=== PATIENT | male | born 1955 | race Caucasian/White ===

== ENCOUNTER 2020-03-18 11:33 | Inpatient (IN) | payer OTHER ==
--- NOTE | 2020-03-18 13:00 | R.PREADM ---
PRE-ADMISSION SCREENING FORM SCREENING DATE AND TIME 03/18/2020 11:35 (CDT) ANTICIPATED REHAB ADMISSION DATE 03/20/2020 REFERRING FACILITY [facility] REFERRAL DATE AND TIME 03/19/2020 08:35 (CDT) ACUTE ADMIT DATE 03/12/2020 Previous Rehabilitation(s): No. 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 Adiel Marroquin M.D. MR# [id number] [facility] [id number] NAME TRICE SIM ADDRESS [address] [facility] PH[address] [facility] [id number] DATE OF 1955 AGE 65 SSN# [id number] GENDER male MARITAL STATUS RACE white PREF. LANGUAGE (IF NON-SWEDISH) [place] ADMIT FROM 02 - [facility] PRE-HOSPITAL LIVING SETTING 01 - Home (private home/apt. board/care, assisted living, retirement, transitional living) HOME TYPE AND DETAILS Type of home: Double Wide Mobile Home # of levels in the residence: 1 # of steps to enter the residence: 5 # of steps within the residence: 0 Does yard work on 16 acres PRE-HOSPITAL LIVING WITH Family/Relatives FAMILY SUPPORT Yes PRIMARY FAMILY CONTACT NAME Maggie Sim PRIMARY FAMILY CONTACT PHONE PRIMARY FAMILY CONTACT RELATIONSHIP IS PRIMARY FAMILY CONTACT AUTH. REP.? no 1ST EMERGENCY CONTACT Maggie Sim 1ST CONTACT PHONE 1ST CONTACT RELATIONSHIP IS 1ST CONTACT AUTH. REP.? no PHONE 2ND CONTACT ON ADM.? 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 No ANOTHER LIBERTARIAN RESPONSIBLE? No PRIMARY REHAB/ACUTE DIAGNOSIS: acute left medullary lucunar infarct ONSET DATE 03/12/2020 REHAB IMPAIRMENT CATEGORY ([place]): 01 Stroke (STR) MEETS 60% rule AFFECTED EXTREMITIES: RLE, and RUE PRIMARY DIAGNOSIS-RELATED SURGERIES: No surgeries related to the primary diagnosis were performed recently. RISK FOR COMPLICATIONS: - Hypertension TIA [place] Hypotension CVA Intraductal papillary mucinous tumor Tobacco Addiction - COPD Resp. Arrest Acute Resp failure Pneumonia - Atrial Fibrillation CVA Limb embolus Heart failure Atrial Fibrillation SUMMARY OF ACUTE HOSPITALIZATION: Pt. is a 65 yo Right-handed white male. On 03/12/2020 Pt. presented to [facility] with sudden onset of right-side weakness. On 03/12/2020 he was admitted to [facility] with diagnosis acute left medullary lucunar infarct . His impairment category is Stroke 01 - Right Body (Left Brain) (01.2). Pre-morbidly, Pt. was independent/mod-I in Transfers Control and Locomotion; and he had good Balance, Social Cognition, Communication, and Sphincter Control. Currently, he has deficits of Transfers Control, Balance, Locomotion, Self-Care, Safety Awareness, So cial Cognition, and Communication. Pt. is now referred to [facility] for acute in-patient rehabilitation in order to maximize patient's functional independence in activities of daily living, strength, ROM, and mobi lity. Patient has realistic goal of being discharged at assistance level 6-Narda to reside at Home with Spo use. PAST MEDICAL HISTORY AFIB Hypertension Chronic Smoker Post TPA COPD MEDICATION ALLERGIES: No Known Drug Allergies (NKDA) ENVIRONMENTAL ALLERGIES: None Known - Substance Allergies None Known - Other Allergies None Known CODE STATUS: Full code WEIGHT/HEIGHT/BMI: WEIGHT 103 lbs HEIGHT 6' 0" BMI 14 DIET: - Diet Type Regular - Diet - Solid Texture Regular - Diet - Liquid Texture Regular - Tube Feed N/A REVIEW OF SYSTEMS: - Gen Alert and awake Lying in bed No apparent distress Oriented to: person, time, and place - Vital Signs Vital signs stable, afebrile - CVS RRR VITAL SIGNS Temperature: 97.3 F SBP/DBP: 158/83 Pulse: 59 Resp: 18 Vital signs stable, afebrile MEDICATIONS/TREATMENT: Other- See attached MAR (Medication Administration Record). CURRENT SPHINCTER CONTROL: Pre-hospital bladder status: unspecified # of bladder accidents in the last 7 days prior to screenin Pre-hospital bowel status: unspecified # of bowel accidents in the last 7 days prior to screenin CURRENT LOCOMOTION STATUS: distance walked 4 feet DETAILED CURRENT FUNCTIONAL STATUS: - Walking score based on distance walked: 1(<=50ft) QI SCORES: - Self-Care A. Eating 04-Supervision or touching assistance B. Oral hygiene 04-Supervision or touching assistance C. Toileting hygiene 02-Substantial/maximal assistance E. Shower/bathe self 02-Substantial/maximal assistance F. Upper body dressing 03-Partial/moderate assistance G. Lower body dressing 02-Substantial/maximal assistance H. Putting on/taking off footwear - Mobility A. Roll left and right 04-Supervision or touching assistance B. Sit to lying 04-Supervision or touching assistance C. Lying to sitting on side of bed 04-Supervision or touching assistance D. Sit to stand 03-Partial/moderate assistance E. Chair/ybc-fp-cdpah transfer 04-Supervision or touching assistance F. Toilet transfer 04-Supervision or touching assistance G. Car transfer 88-Not attempted due to medical condition or safety concerns I. Walk 10 feet 88-Not attempted due to medical condition or safety concerns J. Walk 50 feet with two turns 88-Not attempted due to medical condition or safety concerns K. Walk 150 feet 88-Not attempted due to medical condition or safety concerns L. Walking 10 feet on uneven surfaces 88-Not attempted due to medical condition or safety concerns M. 1 step (curb) 88-Not attempted due to medical condition or safety concerns N. 4 steps 88-Not attempted due to medical condition or safety concerns O. 12 steps 88-Not attempted due to medical condition or safety concerns P. Picking up object 88-Not attempted due to medical condition or safety concerns - Bladder and Bowel Bladder continence Bowel continence - Endurance Good - Balance Good - Safety Awareness Good CURRENT FUNC. DEFICITS: Self-Care and Mobility HISTORY OF FALLS. HAS THE PATIENT HAD TWO OR MORE FALLS IN THE PAST YEAR OR ANY FALL WITH INJURY IN T HE PAST YEAR?: No PRIOR SURGERY. DID THE PATIENT HAVE MAJOR SURGERY DURING THE 100 DAYS PRIOR TO ADMISSION?: No THERAPY NOTES FROM ACUTE CARE: Attached. SPECIAL NEEDS: - Safety Concerns Skin breakdown precautions needed due to skin breakdown risk PRECAUTIONS: - Weight Bearing Precaution WBAT right LE PATIENT NEEDS ACTIVE AND ONGOING THERAPEUTIC INTERVENTION OF MULTIPLE THERAPY DISCIPLINES, INCLUDING: - Occupational Therapy Cognitive Retraining. Visual Perceptual Training. - Dietary and Nutrition Adequate Nutrition. Nutritional Education. Nutritional Supplements. - Speech Therapy Cognitive Training. Expressive Language Skills. Memory Strategies. Receptive Language Skills. Speech Intelligibility Training. PATIENT NEEDS CLOSE MEDICAL SUPERVISION BY A REHABILITATION PHYSICIAN FOR: Coordination of Treatment Team PATIENT REQUIRES 24X7 REHAB NURSING FOR MEDICAL AND FUNCTIONAL MGT. OF THE FOLLOWING DEFICITS: Disease Management Medication Management Patient/Family Education Providing Safe Environment PATIENT REQUIRES INTENSIVE, COORDINATED INTERDISCIPLINARY APPROACH TO REHAB: Arranging Home Equipment/Services Discharge Planning Family Intervention/Training Field Contact Person/Case Management PATIENT REHAB POTENTIAL: Alivia SIM is able and expected to receive 3 hours of individualized therapy daily on at least 5 of e very 7 days Alivia SIM's prognosis for significant practical improvement within a reasonable period of time appea rs Good Expected level of measurable improvement will be of a practical value to Alivia SIM's functional [place] city or adaptations to impairments Has a viable Discharge Plan Medically appropriate; condition is sufficiently stable to participate in intensive rehab program DISCHARGE PLAN: - Estimated Length of Stay (days) 17. - Consensus on plan Discharge plan has been discussed with primary caregiver. Patient/Family is in agreement with the wang n. Primary caregiver is in agreement with the plan. - Patient/Family Goals Return home with assistance. - Planned Living Setting Upon Discharge Home, to live with Spouse. RECOMMENDED CARE LEVEL: IRF RECOMMENDATION DETAILS: Recommended Admission to Comprehensive Rehabilitation Program to Increase Functional [place] SCREENER'S COMPLETENESS CONFIRMATION: - Screening Confirmation The patient data collection on this preadmission screening form is finished PHYSICIANS REVIEW AND ADMISSION DETERMINATION Admit - Based on my review of the Pre-Admission Screening results, in my medical judgment and experie nce, I concur with the findings and recommend admission to [facility], as this patient requires an IRF level of care. SIGNATURE PANEL: Training Assistant - [electronically] signed by Yara Green Linoleum Mechanic on 03/18/2020 at 12:36 (CD T) Physician Reviewer - [electronically] signed by Dr. Adiel Marroquin M.D. on 03/18/2020 at 12:59 (CDT )
--- OUTSIDE RECORDS SUMMARY | 2020-03-18 22:06 | XMS REPORT | Continuity of Care Document ---
:1955 Author Organization [facility] t Address [address] [place] [address] Care Team Providers Name Role Phone Unavailable Unavailable Unavailable Payers Payer Name Policy Type Policy Number Effective Date Expiration Date S ource Problems This patient has no known problems. Allergies, Adverse Reactions, Alerts Allergy Allergy Status Severity Reaction(s) Onset Inactive Treating Comm ents Source Name Type Date Date Clinician No Known DA Active U [facility] Allergie 13 Clear s 00:00: Ghosh [address] [facility] Medications This patient has no known medications. Procedures This patient has no known procedures. Results Test Description Test Time Test Comments Results Result Comments Source Novel Coronavirus 20182020-03-16 13:37:00 Test Item Value Reference Range Interpretation Comme nts Novel Coronavirus 2018 Negative Negative Posit glen results are indicative of the Inhouse (test code = presenc e qpLSQH-ZgU-6 RNA, clinical GWVVQ70MG) correlation wit h patient historyand other diagnosti c information is necessary to de terminepatient infection status. Positiv e results do not rule outbacterial in fection or co-infection with other viru ses. Negative results do not preclude SA RS-CoV-2 infection andshould not b e used as the sole basis for patient man agementdecisions. Negative result s must be combined with otherclinical o bservations, patient history, and ep idemiologicalinformation. Detection of SA RS-CoV-2 RNA may be affected bysamp le collection methods, storage conditi ons, and/or stageof infection. Jie l RNA mutations, vaccinations, a ntiviraltherapeutics, antibiotics, ch emotherapeutic orimmunosuppres franko drugs have not been evaluated for e ffectson detection. Results are for the identification of SARS-CoV-2 RNA usingthe [employer] M2000 System under th e FDA Emergency UseAuthorizatio n. The testing is performed by los maorained in the procedures for the [employer] M2000 moleculardiagno stic SARS-CoV-2 assay in vitro. 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 (test code = O2SATV) VENOUS BLOOD GAS Room Air Performed b y DELIVERY (test code = certif ied 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 [facility]) [facility] VENOUS BLOOD GAS TEMP 97.5 F (test code = TEMPV) VENOUS BLOOD GAS SITE Other (test code = SITEV) VENOUS TCO2 (test 25 code = TCO2V) - XR CHEST 1 [id number] 08:24:00 FAX: Nishi Cleveland NP [phone] [place]: St: [facility] FAX: Lenin Rutledge [phone] Name: TRICE SIM [facility] [place] : 1955 Age/S: 65/M [address] [place] [address] Unit #: [id number] Loc: G.648 [place] [address] Phys: Nishi Cleveland NP Acct: [id number] Dis Date: Status: ADM IN PHONE #: [phone] Exam Date: 03/15/2020 0756 FAX #: [phone] Reason: eval for aspiration pna EXAMS: CPT CODE: [id number] XR CHEST 1 V 87060 Study: - XR CHEST 1 V 03/15/2020 2:08 AM Patient Name: TRICE SIM MR: [id number] : 1955; Age: 65 years y/o Male Ordering Physician: Nishi Cleveland NP Clinical Indication: eval for aspiration pna Comparison: March 12, 2020 x-ray FINDINGS LUNGS: The lungs are clear of consolidation, pleural effusion, and pneumothorax. HEART AND MEDIASTINUM: Normal size heart. LINES: None. OSSEOUS STRUCTURES: No fracture, dislocation, or suspicious focal osseous lesion. OTHER: None. IMPRESSION: No acute abnormality as above di scussed. SL: [id number] at 0824 Reported and signed by: Zeke Wise M.D. CC: Nishi Cleveland ATHLETE MARKETING AGENT; Alfred Sharma MD Technologist: OBIE Madison RT(R) Trnscrd Date/Time/By: 03/15/2020 (08) : By: [email or web address] Orig Print D/T:S: 03/15/2020 (2336) PAGE 1 Signed ReportBASIC METABOLIC [id number] 23:32:00 Test Item Value Reference Range Interpretation Comments SODIUM (test code = NA) 135 mEq/L 134-147 N POTASSIUM (test code = 3.5 mEq/L 3.4-5.0 N K) CHLORIDE (test code = 103 mEq/L 100-108 N CL) CARBON DIOXIDE (test 23 mEq/L 21-33 N code = CO2) ANION GAP (test code = 12 0-20 N GAP) GLUCOSE (test code = 93 mg/dL 70-110 N GLU) BLOOD UREA NITROGEN 5 mg/dL 7-18 L (test code = BUN) GLOMERULAR FILTRATION 216.6 80-90 H Units of measure = RATE (test code = GFR) ml/mi n/1.73 m2 CREATININE (test code = 0.4 mg/dL 0.6-1.3 L CREAT) CALCIUM (test code = 7.4 mg/dL 8.0-10.5 L CA) [id number] 23:32:00 Test Item Value Reference Range Interpretation Comments MAGNESIUM (test code = MAG) 1.47 mg/dL 1.8-2.4 L [id number] 23:32:00 Test Item Value Reference Range Interpretation Comments TROPONIN-I 0.012 ng/mL 0.000-0.045 N Negative: <= (test code = 0.045 Positive: TROPI) >= 0.046 Correl ation with serial results, other cardiac markers andclin ical findings is necessary to determine the clinicalsignifi cance of this result. Results using different metho dologies should not be c omparedto one another as tanner titative results may jasmina y by method. CBC W/AUTO [id number] 23:20:00 Test Item Value Reference Range Interpretation Comments WHITE BLOOD CELL (test code = 9.38 x10 3/uL 4.5-11.0 N WBC) RED BLOOD CELL (test code = 4.26 x10 6/uL 4.00-5.60 N RBC) HEMOGLOBIN (test code = HGB) 14.7 g/dL 12.5-16.9 N HEMATOCRIT (test code = HCT) 42.0 % 37.5-50.7 N MEAN CELL VOLUME (test code = 98.6 fL 81.0-99.0 N MCV) MEAN CELL HGB (test code = MCH) 34.5 pg 27.0-33.0 H MEAN CELL HGB CONCETRATION 35.0 g/dL 33.0-37.0 N (test code = MCHC) RED CELL DISTRIBUTION WIDTH CV 13.7 % 11.5-14.5 N (test code = RDW) RED CELL DISTRIBUTION WIDTH SD 49.8 fL 37.0-54.0 N (test code = RDW-SD) PLATELET COUNT (test code = 220 x10 3/uL 150-400 N PLT) MEAN PLATELET VOLUME (test code 8.4 fL 7.0-9.0 N = MPV) NEUTROPHIL % (test code = NT%) 71.8 % 56.0-77.0 N IMMATURE GRANULOCYTE % (test 0.2 % 0.0-2.0 N code = IG%) LYMPHOCYTE % (test code = LY%) 13.5 % 14.0-32.0 L MONOCYTE % (test code = MO%) 13.8 % 4.8-9.0 H EOSINOPHIL % (test code = EO%) 0.3 % 0.3-3.7 N BASOPHIL % (test code = BA%) 0.4 % 0.0-2.0 N NUCLEATED RBC % (test code = 0.0 % 0-0 N NRBC%) NEUTROPHIL # (test code = NT#) 6.73 x10 3/uL 2.0-7.6 N IMMATURE GRANULOCYTE # (test 0.02 x10 3/uL 0.00-0.03 N code = IG#) LYMPHOCYTE # (test code = LY#) 1.27 x10 3/uL 1.0-3.8 N MONOCYTE # (test code = MO#) 1.29 x10 3/uL 0.1-0.8 H EOSINOPHIL # (test code = EO#) 0.03 x10 3/uL 0.0-0.2 N BASOPHIL # (test code = BA#) 0.04 x10 3/uL 0.0-0.2 N NUCLEATED RBC # (test code = 0.00 x10 3/uL 0.0-0.1 N NRBC#) MANUAL DIFF REQUIRED (test code NO = MDIFF) VITAMIN [id number] 09:04:00 Test Item Value Reference Range Interpretation Comments VITAMIN B12 (test code = VITB12) 295 pg/mL 193-986 N - MRI BRAIN W/O [id number] 11:55:00 FAX: Alfred Rutledge I [phone] [place]: St: ADM FAX: Yue Levine [phone] Name: TRICE SIM : 1955 Age/S: 65/M [address] [place] [address] Unit #: [id number] Loc: G.212 [place] [address] Phys: Yue Gao MD Acct: G [id number] Dis Date: Status: ADM IN PHONE #: [phone] Exam Date: 03/13/2020 1007 FAX #: [phone] Reason: cva with right hemiplegia,hemisensory; no aphas EXAMS: CPT CODE: [id number] MRI BRAIN W/O CONT [id number] MRI brain without contrast 03/13/2020 HISTORY: Right hemiplegia Comparison is made to CT performed 03/12/2020. FINDINGS: There is an acute 10 x 3 mm infarct involving the left medulla. No supratentorial or cerebellar infarct is present. There is no area of increased T1 signal to suggest acute hemorrhage. No midline shift, extra-axial fluid collection, or hydrocephalus is present. The visualized mastoid air cells are clear. There is no paranasal sinus air-fluid level. The expected intracranial flow voids are present. The craniocervical junction and corpus callosum are within normal limits. There is no blooming artifact on the heme sequence to suggest remote hemorrhage. There are a few small foci of increased FLAIR signal in the cerebral white matter. IMPRESSION: 1. Acute left medullary lacunar infarct. 2. No acute intracranial hemorrhage. 3. Minimal chronic microvascular ischemic changes. SL: BM-Jeramy at 1156 Reported and signed by: Theron Ospina M.D. CC: Alfred Sharma MD; Yue Gao MD Technologist: Mauricio Mohamud, RT(R)(CT)(MR) Trnscrd Date/Time/By: 03/13 (4989) : By: [email or web address] Orig Print D/T: S: 03/13/2020 (9083) PAGE 1 Signed ReportDRUGS OF ABUSE SCREEN [id number] 09:23:00 Test Item Value Reference Range Interpretation Comments URN COCAINE (test code NEGATIVE NEGATIVE = COCAURN) URN CANNABINOIDS (test POSITIVE NEGATIVE A code = CANNABURN) URN AMPHETAMINE (test NEGATIVE NEGATIVE code = AMPHETURN) URN BARBITURATE (test NEGATIVE NEGATIVE code = BARBITURN) URN BENZODIAZEPINE NEGATIVE NEGATIVE Cut-off v alue:200 (test code = BENZOURN) ng/mL URN OPIATES (test code NEGATIVE NEGATIVE Cut-o ff value:2000 = OPIATURN) ng/mL URN PHENCYCLIDINE (PCP) NEGATIVE NEGATIVE Cuto ffs:Barbiturates (test code = PHENCURN) 200 ng/mLBenzodiaze pines 200 ng/ mLTHC Cannabinoids 50 ng/mLOpiates(Mo rphine) 2000 ng/mLAmphetamin e 1000 ng/mLCocaine 300 ng/ mLPCP phencyclidine 25 ng/mL Unconf irmed screening resul ts shouldnot be us ed for non-medical pur poses. URINALYSIS [id number] 08:45:00 Test Item Value Reference Range Interpretation Comments UA COLOR (test code = COLU) YELLOW YEL/STRAW UA APPEARANCE (test code = APPU) CLEAR CLEAR UA GLUCOSE DIPSTICK (test code = NEGATIVE NEGATIVE DGLUU) UA BILIRUBIN DIPSTICK (test code NEGATIVE NEGATIVE = BILU) UA KETONE DIPSTICK (test code = NEGATIVE NEGATIVE KETU) UA SPECIFIC GRAVITY (test code = 1.020 1.005-1.030 N SGU) UA BLOOD DIPSTICK (test code = NEGATIVE NEGATIVE DIANA) UA PH DIPSTICK (test code = LUIS FELIPE) 6.0 5.0-7.0 N UA PROTEIN DIPSTICK (test code = NEGATIVE NEGATIVE PROU) UA UROBILINIOGEN DIPSTICK (test 0.2 mg/dL 0.2-1.0 code = URO) UA NITRITE DIPSTICK (test code = NEGATIVE NEGATIVE AC) UA LEUKOCYTE ESTERASE DIPSTICK TRACE NEGATIVE A (test code = LEUU) UA RBC (test code = RBCU) 0-3 RBC/HPF 0-3 UA WBC NO REFLEX (test code = 4-9 WBC/HPF 0-3 A WBCUCL) UA BACTERIA (test code = BACU) TRACE /HPF NONE SEEN UA SQUAMOUS CELLS (test code = 0-5 /HPF NONE SEEN SQU) UA MUCUS (test code = MUCU) TRACE /LPF NONE SEEN [id number] 06:16:00 Test Item Value Reference Range Interpretation Comments AMMONIA (test code = AMM) 18 umol/L 11-35 N BASIC METABOLIC [id number] 06:16:00 Test Item Value Reference Range Interpretation Comments SODIUM (test code = NA) 135 mEq/L 134-147 N POTASSIUM (test code = 3.7 mEq/L 3.4-5.0 N K) CHLORIDE (test code = 99 mEq/L 100-108 L CL) CARBON DIOXIDE (test 26 mEq/L 21-33 N code = CO2) ANION GAP (test code = 13 0-20 N GAP) GLUCOSE (test code = 123 mg/dL 70-110 H GLU) BLOOD UREA NITROGEN 8 mg/dL 7-18 N (test code = BUN) GLOMERULAR FILTRATION 167.4 80-90 H Units of measure = RATE (test code = GFR) ml/mi n/1.73 m2 CREATININE (test code = 0.5 mg/dL 0.6-1.3 L CREAT) CALCIUM (test code = 8.4 mg/dL 8.0-10.5 N CA) COMMENTS: Fasting in AMLIPID PROFILE (CORONARY RISK)2020-03-13 06:16:00 Test Item Value Reference Range Interpretation Comments TRIGLYCERIDES (test 76 mg/dL 40-150 N code = TRIG) CHOLESTEROL (test 141 mg/dL <200 code = CHOL) CHOLESTEROL/HDL 2.58 RATIO 3.43-4.97 L RISK ASSOCIA JENIFER WITH RATIO (test code = CHOL/HDL RATIOS: RISK CHOLHDL) MALE FEMALE1/2 AVERA GE 3.43 3.27AVERAGE 4.97 4.4 42X AVERAGE 9.55 7.053X AVER AGE 23.39 1 1.04 NOTE THAT THE R EFERENCE VALUE IS RELATE DTO RISK LEVELS RECOM MENDED BY THE NATL.HEA RT, LUNG, AND BLOOD INST. HDL CHOLESTEROL 54.7 mg/dL 32-72 N (test code = HDL) LIPOPROTEIN LDL 84.8 mg/dL 0-100 N <100 OPT PESB653-355 (test code = LDL) NEAR OPTI MAL/ABOVE [id number] 89 HIGH>TW=184 VE RY HIGH*Guidelines provided by the [facility] terol [facility] SmyrnaProa m Adult Treatment Panel III COMMENTS: Fasting in AMHEPATIC FUNCTION [id number] 06:16:00 Test Item Value Reference Range Interpretation Comments TOTAL PROTEIN (test code = PROT) 6.2 g/dL 6.4-8.2 L ALBUMIN (test code = ALB) 3.40 g/dL 3.4-5.0 N BILIRUBIN TOTAL (test code = BILT) 0.90 mg/dL 0.0-1.0 N BILIRUBIN DIRECT (test code = 0.30 MG/DL 0.0-0.30 N BILD) BILIRUBIN INDIRECT (test code = 0.60 MG/DL BILIND) SGOT/AST (test code = AST) 20 IUnit/L 15-37 N SGPT/ALT (test code = ALT) 13 IUnit/L 30-65 L ALKALINE PHOSPHATASE TOTAL (test 36 IUnit/L 20-125 N code = ALKP) COMMENTS: Fasting in [id number] 06:16:00 Test Item Value Reference Range Interpretation Comments PHOSPHOROUS (test code = PHOS) 2.5 mg/dL 2.5-4.9 N COMMENTS: Fasting in [id number] 06:16:00 Test Item Value Reference Range Interpretation Comments MAGNESIUM (test code = MAG) 1.77 mg/dL 1.8-2.4 L COMMENTS: Fasting in AMCALCIUM [id number] 06:16:00 Test Item Value Reference Range Interpretation Comments CALCIUM IONIZED (test code = SUKHWINDER) 1.12 MMOL/L 1.12-1.32 N COMMENTS: Fasting in [id number] 06:16:00 Test Item Value Reference Range Interpretation Comments PREALBUMIN (test code = PREALB) 17.2 mg/dL 16.0-40.0 N COMMENTS: Fasting in [id number] 06:15:00 Test Item Value Reference Range Interpretation Comments HGBA1C% (test code = HGBA1C%) 4.9 %A1C 4.8-6.0 N BASIC METABOLIC [id number] 06:03:00 Test Item Value Reference Range Interpretation Comments SODIUM (test code = NA) mEq/L 134-147 POTASSIUM (test code = K) mEq/L 3.4-5.0 CHLORIDE (test code = CL) mEq/L 100-108 CARBON DIOXIDE (test code = CO2) mEq/L 21-33 ANION GAP (test code = GAP) 0-20 GLUCOSE (test code = GLU) mg/dL 70-110 BLOOD UREA NITROGEN (test code = BUN) mg/dL 7-18 GLOMERULAR FILTRATION RATE (test code 80-90 = GFR) CREATININE (test code = CREAT) mg/dL 0.6-1.3 CALCIUM (test code = CA) mg/dL 8.0-10.5 COMMENTS: Fasting in AMLIPID PROFILE (CORONARY RISK)2020-03-13 06:03:00 Test Item Value Reference Range Interpretation Comments TRIGLYCERIDES (test code = TRIG) mg/dL 40-150 CHOLESTEROL (test code = CHOL) mg/dL <200 CHOLESTEROL/HDL RATIO (test code = RATIO 3.43-4.97 CHOLHDL) HDL CHOLESTEROL (test code = HDL) mg/dL 32-72 LIPOPROTEIN LDL (test code = LDL) mg/dL 0-100 COMMENTS: Fasting in AMHEPATIC FUNCTION [id number] 06:03:00 Test Item Value Reference Range Interpretation Comments TOTAL PROTEIN (test code = PROT) g/dL 6.4-8.2 ALBUMIN (test code = ALB) g/dL 3.4-5.0 BILIRUBIN TOTAL (test code = BILT) mg/dL 0.0-1.0 BILIRUBIN DIRECT (test code = BILD) MG/DL 0.0-0.30 SGOT/AST (test code = AST) IUnit/L 15-37 SGPT/ALT (test code = ALT) IUnit/L 30-65 ALKALINE PHOSPHATASE TOTAL (test IUnit/L 20-125 code = ALKP) COMMENTS: Fasting in [id number] 06:03:00 Test Item Value Reference Range Interpretation Comments PHOSPHOROUS (test code = PHOS) mg/dL 2.5-4.9 COMMENTS: Fasting in [id number] 06:03:00 Test Item Value Reference Range Interpretation Comments MAGNESIUM (test code = MAG) mg/dL 1.8-2.4 COMMENTS: Fasting in AMCALCIUM [id number] 06:03:00 Test Item Value Reference Range Interpretation Comments CALCIUM IONIZED (test code = SUKHWINDER) 1.12 MMOL/L 1.12-1.32 N COMMENTS: Fasting in [id number] 06:03:00 Test Item Value Reference Range Interpretation Comments PREALBUMIN (test code = PREALB) mg/dL 16.0-40.0 COMMENTS: Fasting in AMCBC W/AUTO [id number] 05:47:00 Test Item Value Reference Range Interpretation Comments WHITE BLOOD CELL (test code = 12.05 x10 3/uL 4.5-11.0 H WBC) RED BLOOD CELL (test code = 4.51 x10 6/uL 4.00-5.60 N RBC) HEMOGLOBIN (test code = HGB) 15.5 g/dL 12.5-16.9 N HEMATOCRIT (test code = HCT) 44.5 % 37.5-50.7 N MEAN CELL VOLUME (test code = 98.7 fL 81.0-99.0 N MCV) MEAN CELL HGB (test code = 34.4 pg 27.0-33.0 H MCH) MEAN CELL HGB CONCETRATION 34.8 g/dL 33.0-37.0 N (test code = MCHC) RED CELL DISTRIBUTION WIDTH CV 14.1 % 11.5-14.5 N (test code = RDW) RED CELL DISTRIBUTION WIDTH SD 51.2 fL 37.0-54.0 N (test code = RDW-SD) PLATELET COUNT (test code = 260 x10 3/uL 150-400 N PLT) MEAN PLATELET VOLUME (test 8.3 fL 7.0-9.0 N code = MPV) NEUTROPHIL % (test code = NT%) 81.0 % 56.0-77.0 H IMMATURE GRANULOCYTE % (test 0.3 % 0.0-2.0 N code = IG%) LYMPHOCYTE % (test code = LY%) 9.2 % 14.0-32.0 L MONOCYTE % (test code = MO%) 9.1 % 4.8-9.0 H EOSINOPHIL % (test code = EO%) 0.2 % 0.3-3.7 L BASOPHIL % (test code = BA%) 0.2 % 0.0-2.0 N NUCLEATED RBC % (test code = 0.0 % 0-0 N NRBC%) NEUTROPHIL # (test code = NT#) 9.76 x10 3/uL 2.0-7.6 H IMMATURE GRANULOCYTE # (test 0.04 x10 3/uL 0.00-0.03 H code = IG#) LYMPHOCYTE # (test code = LY#) 1.11 x10 3/uL 1.0-3.8 N MONOCYTE # (test code = MO#) 1.10 x10 3/uL 0.1-0.8 H EOSINOPHIL # (test code = EO#) 0.02 x10 3/uL 0.0-0.2 N BASOPHIL # (test code = BA#) 0.02 x10 3/uL 0.0-0.2 N NUCLEATED RBC # (test code = 0.00 x10 3/uL 0.0-0.1 N NRBC#) MANUAL DIFF REQUIRED (test NO code = MDIFF) [id number] 00:45:00 Test Item Value Reference Range Interpretation Comments GLUBED (test code = 150 MG/DL 70-110 H Performe d by certified GLUBED) 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 [facility] [id number] 14:45:00 Test Item Value Reference Range Interpretation Comments MAGNESIUM (test code = MAG) 1.50 mg/dL 1.8-2.4 L TSH REFLEX TO [id number] 14:45:00 Test Item Value Reference Range Interpretation Comments TSH REFLEX TO FT4 (test code = 4.58 IU/mL 0.42-5.47 N TSHREFLEX) BASIC METABOLIC [id number] 14:13:00 Test Item Value Reference Range Interpretation Comments SODIUM (test code = NA) 134 mEq/L 134-147 N POTASSIUM (test code = 3.9 mEq/L 3.4-5.0 N K) CHLORIDE (test code = 98 mEq/L 100-108 L CL) CARBON DIOXIDE (test 27 mEq/L 21-33 N code = CO2) ANION GAP (test code = 13 0-20 N GAP) GLUCOSE (test code = 158 mg/dL 70-110 H GLU) BLOOD UREA NITROGEN 7 mg/dL 7-18 N (test code = BUN) GLOMERULAR FILTRATION 135.6 80-90 H Units of measure = RATE (test code = GFR) ml/mi n/1.73 m2 CREATININE (test code = 0.6 mg/dL 0.6-1.3 N CREAT) CALCIUM (test code = 8.1 mg/dL 8.0-10.5 N CA) [id number] 14:13:00 Test Item Value Reference Range Interpretation Comments TROPONIN-I < 0.006 ng/mL 0.000-0.045 N Negative: <= (test code = 0.045 Positive: TROPI) >= 0.046 Correl ation with serial results, other cardiac markers andclinical findings is nec essary to determine the clinicalsignifi cance of this result. Results using different metho dologies should not be c omparedto one another as tanner titative results may jasmina y by method. - CT CEREBRAL PERF [id number] 14:04:00 Name: TRICE SIM [facility] [place] : 1955 Age/S: 65 / M [address] [place] [address] Bl Unit #: [id number] Loc: Vasu [id number] Phys: Christopher Alejandro MD Acct: [id number] Dis Date: Status: PRE ER PHONE #: [phone] Exam Date: 03/12/2020 1351 FAX #: [phone] Reason: better than worsening right sided sympotms EXAMS: CPTCODE: [id number] CT CEREBRAL PERF ANAL 89528 Clinical Indication: ; better than worsening right sided sympotms Comparison: None TECHNIQUE: Sequential trans-axial images are obtained from the skull base to the vertex with a multi-detector helical CT after intravenous contrast administration. Coronal and sagittal MIP reconstructions are obtained. Perfusion parametric maps were also generated. Region of interest were placed for arterial input function at the right ICA communicating segment andvenous input function at the superior sagittal sinus. IV Contrast: 100 mL Isovue-370 DOSE: CT imaging performed at this location utilizes radiation dose optimization technique which includes one or more of the followin) Automated exposure control; 2) Adjustment of the mA and/or kV according to patient's size; 3) Use of iterative reconstruction techniques. DLP (mGy- cm): 4 FINDINGS: CT PERFUSION: Mean transit time: No evidence of elevated mean transit time. Cerebral blood flow: No evidence of decreased relative cerebral blood flow. Cerebral blood volume: No evidence of decreased relative cerebral blood volume. IMPRESSION: Negative CT perfusion study. Please note small basal ganglia lacunar in farct, posterior fossa and brainstem infarcts cannot be excluded from CT perfusion examination. MRI examination with diffusion-weighted imaging provides higher sensitivity. Findings discussed with Dr. Quiros at 2:03 PM 03/12/2020 by telephone. SL: [id number] PAGE 1 Signed Report (CONTINUED)[facility]: [facility] 1955 Age/S: 65 / M [address] [place] [address] Blvd Unit #: [id number] Loc: [place] [address] Phys: Christopher Alejandro MD Acct: [id number] Dis Date: Status: PRE ER PHONE #: [phone] Exam Date: 03/12/2020 1351 FAX #: [phone] Reason: better than worsening right sided sympotms EXAMS: CPT CODE: [id number] CT CEREBRAL PERF ANAL 01009 <Continued> at 1404 Reported and signed by: Zeke Wise M.D. CC: Christopher Alejandro MD Technologist:Libby Sen, RT(R)(CT) CTDI: DLP: Trnscb Date/Time: 03/12/2020 (7324) [email or web address] Orig Print D/T: S: 03/12/2020 (3489) PAGE 2 Signed ReportPROTHROMBIN [id number] 13:58:00 Test Item Value Reference Range Interpretation Comments PROTHROMBIN TIME 12.8 SECONDS 9.3-12.9 N PATIENT (test code = PTP) INTERNATIONAL NORMAL 1.2 0.8-1.2 N TARGET RATIO (test code = INR BY IN DICATION INR) Indication INR1. Prophyl axis of venous thrombos is 2.0 - 3. 0 (orthopedic evelio sammi), Prophylaxis of venous thrombos is (other than hig h-risk surgery), Gladys tment of Deep Vein Thrombosis/Pulm onary Embolism, Preve ntion of systemic emb olism - Tissue heart va lves, Acute Myocardia l Infarction (to prevent systemic embo lism), Valvular heart disease, Atri al Fibrillation, Bileaflet mecha nical valve in aortic position.2. Mec hanical prosthetic valv es (high risk), 2.5 - 3.5 Presence of Lupus Anticoagu lant or Antiphospholi pid Antibodies, Pre vention of systemic e mbolism - Acute Myocard ial Infarction (t o prevent recurre nt infarct). THROMBOPLASTIN TIME [id number] 13:58:00 Test Item Value Reference Range Interpretation Comments THROMBOPLASTIN TIME 33.5 Seconds 25.0-39.5 N Ther apeutic PARTIAL (test code = Range: 50.4 - 88.3 PTT) Seconds Effective 11/13/2018 CBC W/O [id number] 13:52:00 Test Item Value Reference Range Interpretation Comments WHITE BLOOD CELL (test code = 7.30 x10 3/uL 4.5-11.0 N WBC) RED BLOOD CELL (test code = 4.24 x10 6/uL 4.00-5.60 N RBC) HEMOGLOBIN (test code = HGB) 14.7 g/dL 12.5-16.9 N HEMATOCRIT (test code = HCT) 42.4 % 37.5-50.7 N MEAN CELL VOLUME (test code = 100.0 fL 81.0-99.0 H MCV) MEAN CELL HGB (test code = MCH) 34.7 pg 27.0-33.0 H MEAN CELL HGB CONCETRATION 34.7 g/dL 33.0-37.0 N (test code = MCHC) RED CELL DISTRIBUTION WIDTH CV 14.0 % 11.5-14.5 N (test code = RDW) RED CELL DISTRIBUTION WIDTH SD 51.1 fL 37.0-54.0 N (test code = RDW-SD) PLATELET COUNT (test code = 241 x10 3/uL 150-400 N PLT) MEAN PLATELET VOLUME (test code 8.3 fL 7.0-9.0 N = MPV) UA RFLX MICR CULT IF [id number] 11:31:00 Test Item Value Reference Range Interpretation Comments UA COLOR (test code = COLU) YELLOW discript YEL/STRAW UA APPEARANCE (test code = CLEAR discript CLEAR APPU) UA GLUCOSE DIPSTICK (test NEGATIVE mg/dL NEG code = DGLUU) UA BILIRUBIN DIPSTICK (test NEGATIVE mg/dL NEG code = BILU) UA KETONE DIPSTICK (test NEGATIVE mg/dL NEG code = KETU) UA SPECIFIC GRAVITY (test 1.015 SG 1.005-1.030 code = SGU) UA BLOOD DIPSTICK (test NEGATIVE mg/DL NEG code = DIANA) UA PH DIPSTICK (test code = 7.5 pH UNITS 5.0-7.0 A LUIS FELIPE) UA PROTEIN DIPSTICK (test NEGATIVE mg/dL NEG code = PROU) UA UROBILINIOGEN DIPSTICK 0.2 mg/dL <2.0 (test code = URO) UA NITRITE DIPSTICK (test NEGATIVE SCREEN NEG code = AC) UA LEUKOCYTE ESTERASE NEGATIVE Leuk/mcL NEGATIVE DIPSTICK (test code = LEUU) UA CULTURE NEEDED? (test Criteria Culture CHK code = UACULT) SOURCE OF URINE: CLEAN CATCHIndication for culture: Dysuria/FrequencyUA RFLX MICR CULT IF [id number] 11:31:00 Test Item Value Reference Range Interpretation Comments UA COLOR (test code = YELLOW discript YEL/STRAW COLU) UA APPEARANCE (test code CLEAR discript CLEAR = APPU) UA GLUCOSE DIPSTICK (test NEGATIVE mg/dL NEG code = DGLUU) UA BILIRUBIN DIPSTICK NEGATIVE mg/dL NEG (test code = BILU) UA KETONE DIPSTICK (test NEGATIVE mg/dL NEG code = KETU) UA SPECIFIC GRAVITY (test 1.015 SG 1.005-1.030 code = SGU) UA BLOOD DIPSTICK (test NEGATIVE mg/DL NEG code = DIANA) UA PH DIPSTICK (test code 7.5 pH UNITS 5.0-7.0 A = LUIS FELIPE) UA PROTEIN DIPSTICK (test NEGATIVE mg/dL NEG code = PROU) UA UROBILINIOGEN DIPSTICK 0.2 mg/dL <2.0 (test code = URO) UA NITRITE DIPSTICK (test NEGATIVE SCREEN NEG code = AC) UA LEUKOCYTE ESTERASE NEGATIVE Leuk/mcL NEGATIVE DIPSTICK (test code = LEUU) UA CULTURE NEEDED? (test NO, WBC<10 Criteria Culture CHK code = UACULT) SOURCE OF URINE: CLEAN CATCHIndication for culture: Dysuria/FrequencyLACTIC [id number] 11:16:00 Test Item Value Reference Range Interpretation Comments LACTIC ACID (test code = LACT) 2.3 mmol/L 0.4-2.0 H Coronavirus 2019 nCoV [id number] 11:08:00 Test Item Value Reference Range Interpretation Comments Coronavirus 2019 nCoV Negative Negative Per ma nufacturer, Bedside (test code = negativ e results should [id number]) be treated aspresumptive a nd, if inconsistent wi th clinical signs andsymptoms or necessary for p atient management, isis uld betested with a n alternative mol ecular assay. Negative resultsdo not p reclude SARS-CoV-2 infe ction and should not be usedas the sole basis for patient man agement decisions. Neg ative results should be considered in t he context of apat ient's recent exposure s, history, prese nce of clinicalsigns a nd symptoms consis tent with COVID-19. Emergent procedure? NO- XR CHEST 1 [id number] 10:35:00 Name: TRICE SIM [place] : 1955 Age/S: 65 / M [address] [address] [place] Unit #: [id number] Loc: [place] [address] Phys: Monroe Villar MD Acct: [id number] Dis Date: Status: REG ER PHONE #: [phone] Exam Date: 03/12/2020 1030 FAX #: Reason: Code Stroke EXAMS: CPT: [id number] XR CHEST 1 V 13772 Fluoro Time: DAP (Gy m2): Air Kerma (mGy): EXAM: - XR CHEST 1 V INDICATION: Code Stroke Location: T 18. COMPARISON: None TECHNIQUE: Frontal view of the chest. FINDINGS: Lungs appear clear. Cardiomediastinal silhouette and osseous structures appear unremarkable. No pleural effusion appreciated. IMPRESSION: No acute cardiopulmonary process seen. at 1035 Reported and signed by: Miguel A Tinsley M.D. CC: Monroe Villar MD PAGE 1 Signed Report Name: TRICE SIM [place] : 1955 Age/S: 65 / M [address] [address] [place] Unit #: [id number] Loc: [place] [address] Phys: Monroe Villar MD Acct: [id number] Dis Date: Status: REG ER PHONE #: [phone] Exam Date: 03/12/2020 1030 FAX #: Reason: Code Stroke EXAMS: CPT: [id number] XR CHEST 1 V 68355 Fluoro Time: DAP (Gy m2): Air Kerma (mGy): <Continued> Technologist: Anette Lamb, RT(R)(CT) Trnscb Date/Time:03/12/2020 (1035) [email or web address] Orig Print D/T: S: 03/12/2020 (3923) PAGE 2 Signed ReportBASIC METABOLIC [id number] 10:21:00 Test Item Value Reference Range Interpretation Comments SODIUM (test code = NA) 134 mmol/L 134-147 N POTASSIUM (test code = 3.6 mmol/L 3.4-5.0 N K) CHLORIDE (test code = 103 mmol/L 100-108 N CL) CARBON DIOXIDE (test 24 mmol/L 21-32 N code = CO2) ANION GAP (test code = 7.0 GAP calc 4.0-15.0 N GAP) GLUCOSE (test code = 166 MG/DL 70-110 H GLU) BLOOD UREA NITROGEN 8 MG/DL 7-18 N (test code = BUN) GLOMERULAR FILTRATION >=60 max estimate >60 RATE (test code = GFR) estGFR CREATININE (test code = 0.7 MG/DL 0.8-1.3 L CREAT) CALCIUM (test code = CA) 7.8 MG/DL 8.5-10.1 L Completed by Nursing: [id number] 10:21:00 Test Item Value Reference Range Interpretation Comments TROPONIN-I (test < 0.015 NG/ML 0.000-0.045 N Negative: </= 0.045 code = TROPI) Positive: >/= 0.046 Correlation wit h serial results, other cardiac markers, and cl inical findings is nec essary to determine the c linical significance of this result. Quantit ative results using d ifferent methodologies s hould not be compared to one another as nume rical results may jasmina yby method. Completed by Nursing: NO- CT ANGIO [id number] 10:14:00 Name: TRICE SIM : 1955 Age/S: 65 / M [address] [address] [place] Unit #: [id number] Loc: [place] [address] Phys: Monroe Villar MD Acct: [id number] Dis Date: Status: REG ER PHONE #: [phone] Exam Date: 03/12/2020951 FAX #: Reason: RUE, RLE WEAKNESS EXAMS: CPT: [id number] CT ANGIO NECK 37620 R16 - CT ANGIO HEAD, - CT ANGIO NECK HISTORY: RUE, RLE WEAKNESS TECHNIQUE: Axial CT images were obtained from the aortic arch to the skull vertex after intravenous contrast utilizing CTA protocol. Maximum intensity projection images were created from the data set. One or more of the following dose reduction techniques were used: Automated exposure control, adjustment of the mA and/or kV according to patient size, and/or iterative reconstruction. COMPARISON: None FINDINGS: CTA NECK: The imaged aortic arch is normal. The origins of the brachiocephalic, bilateral common carotid, bilateral subclavian, and bilateral vertebral arteries demonstrate no significant stenosis. Noncalcified plaque result in mild stenosis of the proximal left subclavian artery distal to the origin and proximal to the left vertebral origin. The bilateral internal andexternal carotid arteries are patent. Mild calcification in bilateral carotid bulbs. There is no significant internal carotid artery stenosis by NASCET-like criteria. The cervical vertebral arteries are patent and right dominant. There is no evidence of arterial dissection, significant stenosis, occlusion, extravasation of contrast material, arteriovenous fistula or pseudoaneurysm. Severe centrilobular and paraseptal emphysema throughout both lungs. Maximum intensity projection images confirm these findings. CTA HEAD: The petrous, cavernous, and supraclinoid segments of the bilateral internal carotid arteries are normal. The ophthalmic artery origins are visualized and normal. The posterior communicating arteries are patent. PAGE 1 Signed Repo rt (CONTINUED) Name: TRICE SIM : 1955 Age/S: 65 / M [address] [address] [place] Unit #: [id number] Loc: [place] [address] Phys: Monroe Villar MD Acct: [id number] Dis Date: Status: REG ER PHONE #: [phone] Exam Date: 03/12/2020 0952 FAX #: Reason: RUE, RLE WEAKNESS EXAMS: CPT: [id number] CT ANGIO NECK [address]69[address] <Continued> Anterior and middle cerebral arteries are normal bilaterally. The anterior communicating artery is patent. Both posterior cerebral arteries are normal. The vertebral arteries are patent and right dominant. The left vertebral artery terminates as PICA. The basilar artery and origins of the bilateral posterior inferior cerebellar arteries, anterior inferior cerebellar arteries, and superior cerebellar arteries are normal. No saccular aneurysm, proximal arterial cut off, intra-arterial clot, or hemodynamically significant intracranial arterial stenosis is present. Maximum intensity projection images confirm these findings. IMPRESSION: Emphysematous changes in the visualized lung apices. Mild atherosclerosis in bilateral carotid bulbs without significant stenosis. Mild stenosis in the proximal left subclavian artery. No large vessel occlusion. at 1014 Reported and signed by: Donell Haddad M.D. CC: Monroe Villar MD Technologist:RT Tyron(R)(CT) CTDI: DLP: Trnscb Date/Time: 03/12/2020 (1014) [email or web address] Orig Print D/T: S: 03/12/2020 (1017) PAGE 2 Signed Report- CT ANGIO [id number] 10:14:00 Name: TRICE SIM [place] : 1955 Age/S: 65 / M [address] [address] [place] Unit #: [id number] Loc: [place] [address] Phys: Monroe Villar MD Acct: [id number] Dis Date: Status: REG ER PHONE #: [phone] Exam Date: 03/12/2020 0948 FAX #: Reason: RUE, RLE WEAKNESS EXAMS: CPT: [id number] CT ANGIO HEAD 67630 R16 - CT ANGIO HEAD, - CT ANGIO NECK HISTORY: RUE, RLE WEAKNESS TECHNIQUE: Axial CT images were obtained from the aortic arch to the skull vertex after intravenous contrast utilizing CTA protocol. Maximum intensity projection images were created from the data set. One or more of the following dose reduction techniques were used: Automated exposure control, adjustment of the mA and/or kV according to patient size, and/or iterativereconstruction. COMPARISON: None FINDINGS: CTA NECK: The imaged aortic arch is normal. The origins of the brachiocephalic, bilateral common carotid, bilateral subclavian, and bilateral vertebral arteries demonstrate no significant stenosis. Noncalcified plaque result in mild stenosis of the proximal left subclavian artery distal to the origin and proximal to the left vertebral origin. The bilateral internal and external carotid arteries are patent. Mild calcification in bilateral carotid bulbs. There is no significant internal carotid artery stenosis by NASCET-like criteria. The cervical vertebral arteries are patent and right dominant. There is no evidence of arterial dissection, significant stenosis, occlusion, extravasation of contrast material, arteriovenous fistula or pseudoaneurysm. Severe centrilobular and paraseptal emphysema throughout both lungs. Maximum intensity projection images confirm these findings. CTA HEAD: The petrous, cavernous, and supraclinoid segments of the bilateral internal carotid arteries are normal. The ophthalmic artery origins are visualized and normal. The posterior communicating arteries are patent. PAGE 1 Signed Report (CONTINUED) Name: TRICE SIM [facility] : 1955 Age/S: 65 / M [address] [facility] [place] Unit #: [id number] Loc: [place] [address] Phys: Monroe Villar MD Acct: [id number] Dis Date: Status: REG ER PHONE #: [phone] Exam Date: 03/12/2020 0902 FAX #: Reason: RUE, RLE WEAKNESS EXAMS: CPT: [id number] CT ANGIO HEAD [address] <Continued> Anterior and middle cerebral arteries are normal bilaterally. The anterior communicating artery is patent. Both posterior cerebral arteries are normal. The vertebral arteries are patent and right dominant. The left vertebral artery terminates as PICA. The basilar artery and origins of the bilateral posterior inferior cerebellar arteries, anterior inferior cerebellar arteries, and superior cerebellar arteries are normal. No saccular aneurysm, proximal arterial cut off, intra-arterial clot, or hemodynamically significant intracranial arterial stenosis is present. Maximum intensity projection images confirm these findings. IMPRESSION: Emphysematous changes in the visualized lung apices. Mild atherosclerosis in bilateral carotid bulbs without significant stenosis. Mild stenosis in the proximal left subclavian artery. No large vessel occlusion. at 1014 Reported and signed by: Donell Haddad M.D. CC: Monroe Villar MD Technologist:Usha Hobson RT(R)(CT) CTDI: DLP: Trnscb Date/Time: 03/12/2020 (1014) [email or web address] Orig Print D/T: S: 03/12/2020 (1017) PAGE 2 Signed Report PROTHROMBIN [id number] 10:07:00 Test Item Value Reference Range Interpretation Comments PT PATIENT (test code = PTP) 13.4 SECONDS 9.3-12.9 H INTERNATIONAL NORMAL RATIO 1.18 INR Unit 0.8-1.2 N (test code = INR) THROMBOPLASTIN TIME [id number] 10:07:00 Test Item Value Reference Range Interpretation Comments THROMBOPLASTIN TIME PARTIAL 29.3 SECONDS 26-35 N (test code = PTT) CBC W/O [id number] 09:59:00 Test Item Value Reference Range Interpretation Comments WHITE BLOOD CELL (test code = WBC) 8.8 K/mm3 3.5-11.0 N RED BLOOD CELL (test code = RBC) 4.13 M/mm3 4.70-6.10 L HEMOGLOBIN (test code = HGB) 14.4 G/DL 12.3-15.9 N HEMATOCRIT (test code = HCT) 40.7 % 35.8-46.7 N MEAN CELL VOLUME (test code = MCV) 98.5 Fl 86.3-98.9 N MEAN CELL HGB (test code = MCH) 34.9 pg 28.9-34.4 H MEAN CELL HGB CONCETRATION (test 35.4 G/DL 32.1-34.5 H code = MCHC) RED CELL DISTRIBUTION WIDTH (test 14.0 SD 11.5-14.5 N code = RDW) PLATELET COUNT (test code = PLT) 249 K/mm3 150-450 N MEAN PLATELET VOLUME (test code = 8.40 fL 7.0-9.6 N MPV) - CT HEAD/BRAIN W/O [id number] 09:57:00 Name: TRICE SIM [facility] : 1955 Age/S: 65 / M [address] [address] [place] Unit #: [id number] Loc: [place] [address] Phys: Monroe Villar MD Acct: [id number] Dis Date: Status: DEP ER PHONE #: [phone] Exam Date: 03/12/2020 0945 FAX #: Reason: Code Str solange EXAMS: CPT: [id number] CT HEAD/BRAIN W/O CONT 77711 EXAM: - CTHEAD/BRAIN W/O CONT LOCATION: C3 HISTORY: 65 years-year old Male with Code Stroke TECHNIQUE: Computerized tomography images from the skull base to the vertex were obtained. Coronal and sagittal reformatted images are provided. This exam was performed according to our departmental dose-optimization program, which includes automated exposure control, adjustment of the mA and/or kV according to patient size and/or use of iterative reconstruction technique COMPARISON: None FINDINGS: Brain: The brain parenchymal architecture is unremarkable. The brain parenchyma is age appropriate. There is no evidence of an acute territorial infarct. Hemorrhage: There is no CT evidence of acute intracranial hemorrhage. Mass/edema: There is no CT evidence of mass effect, midline shift, or parenchymal edema. Ventricles: There is no evidence of hydrocephalus. Bones: There is no evidence of acute displaced calvarial fracture. Sinuses: The visualized portions of the paranasal sinuses and mastoid air cells are free of significant opacification. Other/Soft Tissues: Unremarkable. Findings were communicated to Chrissy Phelps by telephone on 03/12/2020 9:56 AM. IMPRESSION: 1. No CT evidence of acute intracranial abnormality. FOR INTERNAL CODING PURPOSES ONLY PAGE 1 Signed Report (CONTINUED) Name: TRICE SIM [place] : 1955 Age/S: 65 / M [address] [address] [place] Unit #: [id number] Loc: [place] [address] Phys: Monroe Villar MD Acct: [id number] Dis Date: Status: [facility] ER PHONE #: [phone] Exam Date: 03/12/2020 0945 FAX #: Reason: Code Stroke E XAMS: CPT: [id number] CT HEAD/BRAIN W/O CONT 95442 <Continued> RESULT CODE: CVR at 0957 Reported and signed by: SAMRA WHITE M.D. CC: Monroe Villar MD Technologist:Usha Hobson, RT(R)(CT) CTDI: DLP: Trnscb Date/Time: 03/12/2020 (7828) [email or web address] Orig Print D/T: S: 03/12/2020 (3139) PAGE 2 Signed Report
[2020-03-18] MEDS ORDERED: TRAZODONE 50 MG TABLET PO PRN (22:29)
[2020-03-18] MEDS ORDERED: LACTULOSE 20 GM/30 ML UCUP PO PRN (22:30)
[2020-03-18 23:52] LABS: Urine Appearance CLEAR; Urine Bilirubin NEGATIVE (NEG); Urine Blood NEGATIVE (NEG); Urine Color YELLOW; Urine Glucose NEGATIVE (NEG); Urine Protein NEGATIVE (NEG); Urine pH 7.5 (5.0-7.0)
[2020-03-19] MEDS: TRAZODONE 50 MG TABLET PO PRN (00:07)
[2020-03-19] MEDS: HYDROCODONE/APAP 5/325 MG TAB PO PRN ×3 (00:07→19:14)
[2020-03-19 00:33] LABS: Urine Bacteria <20 /HPF (NONE SEEN); Urine Culture Reflex Order NOT NEEDED; Urine RBC NONE SEEN /HPF (NONE SEEN)
[2020-03-19] MEDS ORDERED: GUAIFENESIN 600 MG SA TAB PO SCH (08:00)
[2020-03-19] MEDS: ARFORMOTEROL TARTRATE 15 MCG/2 ML VIAL.NEB IH SCH ×2 (08:20→20:20)
[2020-03-19] MEDS: METOPROLOL TAR 50 MG TAB PO SCH ×2 (08:46→19:36)
[2020-03-19] MEDS: NICOTINE 21 MG/PAT TD SCH (08:51)
[2020-03-19] MEDS ORDERED: IPRATROPIUM 200 PUFF/12.9 GM INH IH SCH ×2 (09:00→17:00)
[2020-03-19] MEDS ORDERED: GUAIFENESIN 600 MG SA TAB PO PRN (15:14)
[2020-03-19 15:20] LABS: Absolute Lymphocytes (CBC) 1.4 K/uL (0.7-4.9); Basophils % 0.9 % (0-1.3); Lymphocytes % 9.7 % (15.3-44.8); MPV 6.9 fL (7.6-11.3); RBC Red Blood Cell Count 4.92 M/uL (4.33-5.43)
--- NOTE | 2020-03-19 15:33 | RAD REPORT ---
EXAM DESCRIPTION: RAD - Chest Single View - 03/19/2020 3:26 pm CLINICAL HISTORY: r/o pnuemonia COMPARISON: April 2015 TECHNIQUE: AP portable chest image was obtained 03/19/2020 3:26 pm . FINDINGS: Scattered fibrotic lung changes are present. Interstitial pattern is prominent but not lauren elise different from comparison. No peripheral mass consolidation. Failure and volume overload are not suspected. Heart and vasculature are normal. No measurable pleural effusion and no pneumothorax. No acute bony abnormality seen. No acute aortic findings suspected. IMPRESSION: Fibrotic lung pattern is present not substantially different from comparison. Chronic changes in the right lung base could potentially mask an early infiltrate.
[2020-03-19 15:57] LABS: BUN Blood Urea Nitrogen 19 mg/dL (7-18); Bicarbonate 30 mmol/L (21-32); Glucose Level 101 mg/dL (74-106); Prealbumin 26.6 mg/dL (20-40); Sodium Level 136 mmol/L (136-145)
[2020-03-19 16:04] LABS: Potassium 4.3 mmol/L (3.5-5.1)
[2020-03-19] MEDS: ENOXAPARIN 40 MG/0.4 ML SQ SCH ×2 (17:00→17:13)
--- NOTE | 2020-03-19 17:18 | R.HP ---
HISTORY AND PHYSICAL FACILITY: [facility] ENCOUNTER DATE AND TIME: 03/19/2020 17:09 (CDT) MR#: [id number] NAME TRICE SIM AD[address]ESS: [address] CITY: [place]IP [address] PHONE: DATE OF : 1955 AGE: 65 SSN# [id number] GENDER: Male DEXTERITY Right-handed MARITAL STATUS RACE White PRE-HOSPITAL LIVING SETTING 01 - Home (private home/apt. board/care, assisted living, [place] [facility], transitional living) PRE-HOSPITAL LIVING WITH Family/Relatives ENCOUNTER PHYSICIAN: Dr. Adiel Marroquin M.D. REFERRING DOCTOR: DR Alfred Smyth DATE OF ADMISSION: 03/18/2020 20:01 (CDT) REFERRING FACILITY [facility] HOME TYPE AND DETAILS: Type of home: Double Wide Mobile Home # of levels in the residence: 1 # of steps to enter the residence: 5 # of steps within the residence: 0 [place] yard work on 16 [place] ONSET DATE: 03/12/2020 PRIMARY DIAGNOSIS-RELATED SURGERIES: No surgeries related to the primary diagnosis were performed recently. HISTORY OF PRESENT ILLNESS (HPI): Pt. is a 65 yo Right-handed white male. On 03/12/2020 Pt. presented to [facility] with sudden onset of right-side weakness. On 03/12/2020 he was admitted to [facility] with diagnosis acute left medullary lucunar infarct . His impairment category is Stroke 01 - Right Body (Left Brain) (01.2). Pre-morbidly, Pt. was independent/mod-I in Transfers Control and Locomotion; and he had good Balance, Social Cognition, Communication, and Sphincter Control. Currently, he has deficits of Transfers Control, Balance, Locomotion, Self-Care, Safety Awareness, So cial Cognition, and Communication. Pt. is now referred to [facility] for acute in-patient rehabilitation in order to maximize patient's functional independence in activities of daily living, strength, ROM, and mobi lity. Patient has realistic goal of being discharged at assistance level 6-Narda to reside at Home with Spo use. MEDICATION ALLERGIES: No Known Drug Allergies (NKDA) ENVIRONMENTAL ALLERGIES: None Known - Substance Allergies None Known - Other Allergies None Known PAST MEDICAL HISTORY: AFIB Hypertension Chronic Smoker Post TPA COPD SOCIAL HISTORY: - Home Living Family/Relatives REVIEW OF SYSTEMS: - Gen No Chills No Fatigue No Fever - Eyes No Double Vision No itchiness - ENMT Difficulty Swallowing - CVS No Chest Discomfort No Chest Pain Fatigue No Weight Gain - Resp No Cough No Shortness of Breath - GI Continent No Abdominal Pain No Constipation No Diarrhea - Continent No Kidney Pain No Painful Urination No Urinary Urgency - MSK No Joint Pain Muscle Cramps Stiffness - Skin No Itching No Rash No Suspicious Lesions - Neuro Coordination Difficulty No Difficulty with Concentration No Memory Loss No Seizures Weakness - Psych No Anxiety No Depression No HIV Exposure No Persistent Infections No Seasonal Allergies - Endo No Cold/Heat Intolerance No Excessive Hunger No Excessive Thirst No Excessive Urination PHYSICAL EXAM - Gen Alert and awake Lying in bed No apparent distress Oriented to: person, time, and place - Skin No skin breakdown. Normacephalic - Eyes No abnormalities - ENMT No abnormalities - Neck No abnormalities No cervical adenopathy - CVS IRIR - Chest Mildly decreased breath sounds bilaterally. - Resp No crackles - Abd Soft - GI Soft Deferred - No abnormalities - Ext No significant edema - MSK 0-1+/5 weakness in right upper and lower extremity. - Neuro 0-1+/5 weakness in right upper and lower extremity. - Psych Mild anxiety. VITAL SIGNS Temperature: 98.4 F SBP/DBP: 143/90 Pulse: 87 Resp: 16 NURSING: - Shower allowing shower - Bladder care per protocol - Skin care per protocol PRECAUTIONS: - Weight Bearing Precaution WBAT right LE ACTIVITIES OOB only with supervision QI SCORES: - Self-Care A. Eating 04-Supervision or touching assistance B. Oral hygiene 04-Supervision or touching assistance C. Toileting hygiene 02-Substantial/maximal assistance E. Shower/bathe self 02-Substantial/maximal assistance F. Upper body dressing 03-Partial/moderate assistance G. Lower body dressing 02-Substantial/maximal assistance H. Putting on/taking off footwear - Mobility A. Roll left and right 04-Supervision or touching assistance B. Sit to lying 04-Supervision or touching assistance C. Lying to sitting on side of bed 04-Supervision or touching assistance D. Sit to stand 03-Partial/moderate assistance E. Chair/zpx-iw-cvynu transfer 04-Supervision or touching assistance F. Toilet transfer 04-Supervision or touching assistance G. Car transfer 88-Not attempted due to medical condition or safety concerns I. Walk 10 feet 88-Not attempted due to medical condition or safety concerns J. Walk 50 feet with two turns 88-Not attempted due to medical condition or safety concerns K. Walk 150 feet 88-Not attempted due to medical condition or safety concerns L. Walking 10 feet on uneven surfaces 88-Not attempted due to medical condition or safety concerns M. 1 step (curb) 88-Not attempted due to medical condition or safety concerns N. 4 steps 88-Not attempted due to medical condition or safety concerns O. 12 steps 88-Not attempted due to medical condition or safety concerns P. Picking up object 88-Not attempted due to medical condition or safety concerns - Bladder and Bowel Bladder continence Bowel continence - Endurance Good - Balance Good - Safety Awareness Good CURRENT FUNC. DEFICITS: Self-Care and Mobility MEDICATIONS: - Other See attached MAR (Medication Administration Record) ASSESSMENT: Pt. is a 65 yo Right-handed white male.On 03/12/2020 Pt. presented to [facility] with sudden onset of right-side weakness.On 03/12/2020 he was admitted to [facility] with diagnosis acute left medu llary lucunar infarct .His impairment category is Stroke 01 - Right Body (Left Brain) (01.2).Pre-m orbidly, Pt. was independent/mod-I in Transfers Control and Locomotion; and he had good Balance, Soci al Cognition, Communication, and Sphincter Control.Currently, he has deficits of Transfers Control, B alance, Locomotion, Self-Care, Safety Awareness, Social Cognition, and Communication.Pt. is now refer red to [facility] for acute in-patient rehabilitation in order to maximize pat ient's functional independence in activities of daily living, strength, ROM, and mobility.- Rehab Goa l Patient has realistic goal of being discharged at assistance level 6-Narda to reside at Home with Spo use. REHAB PLAN: for Dementia, TBI, Stroke, or others - Physical Therapy Inability to transfer - to improve, our physical therapists will perform initial evaluation of pt's s tatus upon admission and devise an individualized program for Bed mobility Need for home safety evaluation - to improve, our physical therapists will perform initial evaluation of pt's status upon admission and devise an individualized program for Home Evaluation Need in caregiver upon discharge - to improve, our physical therapists will perform initial evaluatio n of pt's status upon admission and devise an individualized program for Caregiver Training Edema - to improve, our physical therapists will perform initial evaluation of pt's status upon admi ssion and devise an individualized program for Elevation Training, and Lymphedema Therapy New precaution - to improve, our physical therapists will perform initial evaluation of pt's status u marie admission and devise an individualized program for Patient precaution education Poor balance - to improve, our physical therapists will perform initial evaluation of pt's status upo n admission and devise an individualized program for Balance Training Achieving independence - to improve, our physical therapists will perform initial evaluation of pt's status upon admission and devise an individualized program for Community Reintegration Activities - Occupational Therapy ADL deficits - to improve, our occupation therapists will perform initial evaluation of pt's status u marie admission and devise an individualized program for Bathing, Bed mobility, Community Reintegration , Cooking, Dressing, Eating, Fine Motor Skills, Grooming, Homemaking, Kitchen Mobility, Laundry, Ella ent Education, Safety Awareness, Splinting - Positioning, Transfers(Toilet, Tub, Shower), and Wheel C hair Management Cognitive deficits - to improve, our occupation therapists will perform initial evaluation of pt's st atus upon admission and devise an individualized program for Cognition - orientation Need for farm or ranch animal caretaker - to improve, our occupation therapists will perform initial evaluation of pt's s tatus upon admission and devise an individualized program for Caregiver Training MEDICAL PLAN: - Diet Type Start Regular - Diet - Liquid Texture Start Regular - Tube Feed Start N/A - Bladder care per protocol - Weight Bearing Precaution WBAT right LE - Skin care per protocol - Other See attached MAR (Medication Administration Record) - Diet - Solid Texture Regular - Shower shower DISCHARGE PLAN: - Estimated Length of Stay (days) 17. - Consensus on plan Discharge plan has been discussed with primary caregiver. Patient/Family is in agreement with the wang n. Primary caregiver is in agreement with the plan. - Patient/Family Goals Return home with assistance. - Planned Living Setting Upon Discharge Home, to live with Spouse. SIGNATURE PANEL: (CDT)
--- NOTE | 2020-03-19 17:19 | PAPE ---
POST ADMISSION PHYSICIAN EVALUATION PATIENT: [facility] MR# [id number] REFERRING DOCTOR DR Alfred Smyth EVALUATION DATE AND TIME 03/19/2020 17:17 (CDT) NAME TRICE SIM DATE OF 1955 AGE 65 PHONE SSN# [id number] GENDER male EVALUATING PHYSICIAN Dr. Adiel Marroquin M.D. ADMISSION DIAGNOSIS: acute left medullary lucunar infarct ONSET DATE 03/12/2020 POST-ADMISSION FUNCTIONAL/MEDICAL STATUS: - Walking Same score based on distance walked: 1(<=50ft) STATUS CHANGE EVALUATION: No change in Functional or Medical Status is identified compared with Pre-Admission screening. PATIENT NEEDS CLOSE MEDICAL SUPERVISION BY A REHABILITATION PHYSICIAN FOR: Coordination of Treatment Team PATIENT REQUIRES 24X7 REHAB NURSING FOR MEDICAL AND FUNCTIONAL MGT. OF THE FOLLOWING DEFICITS: Disease Management Medication Management Patient/Family Education Providing Safe Environment PATIENT REQUIRES INTENSIVE, COORDINATED INTERDISCIPLINARY APPROACH TO REHAB: Arranging Home Equipment/Services Discharge Planning Family Intervention/Training Color Technician/Case Management LIST OF IDENTIFIED AND POTENTIAL PROBLEMS: Alteration in leisure activities Infection, Actual or Potential Mobility Impaired Pain, Alteration in Comfort Self Care Deficit Skin Integrity, Actual or Potential Urinary Tract Infection (UTI), Actual or Potential RISK FOR COMPLICATIONS - Hypertension TIA. CO. Hypotension. CVA. Intraductal papillary mucinous tumor. Tobacco Addiction. - COPD Resp. Arrest. Acute Resp failure. Pneumonia. - Atrial Fibrillation CVA. Limb embolus. Heart failure. Atrial Fibrillation. PATIENT COULD BE AT RISK FOR COMPLICATIONS FROM ADVERSE MEDICAL CONDITIONS DUE TO HIS/HER COMORBIDITI ES AND THE RIGORS OF THE INTENSIVE REHABILLITATION PROGRAM. METHODS OR INTERVENTIONS TO AVOID COMPLIC ATIONS INCLUDE: - Bleeding Stroke patients assessed for lethargy or change in status. - Infection Clinical staff to assess and manage the signs and symptoms of infection including fever, redness, war mth, etc. - Urinary Tract Infection - Aspiration Clinical staff will assess and manage coughing, drooling, congestion. - Falls Patient will be evaluated for Fall Precautions and will be placed on Fall Precautions as indicated pe r protocol. - Skin Breakdown Nursing will assess skin daily using assessment tool and will place on Skin Breakdown Precautions as indicated per protocol. - Pain Clinical staff may employ non-medication methods such as massage, distraction, decrease stimulus, etc . as needed. Clinical staff will assess patient's pain level every shift per protocol to assess and e nsure pain management effectiveness. Medications will be given and the pain level re-assessed. PRELIMINARY PLAN OF CARE: - Physical Therapy Patient needs Physical Therapy for a daily minimum of 1.5 hours at least 5 out of 7 days, to improve: Mobility, Strengthening, Transfers, Stretching, ROM, Endurance, Ability to manage stairs, Gait, and Balance. - Speech Therapy Patient needs Speech Therapy for a daily minimum of 0.5 hours at least 5 out of 7 days, to improve: S wallowing, Cognition, Language Skills, and Compensatory Strategies. - Rehabilitation Nursing Patient requires 24x7 Rehabilitation Nursing for: Pain Issues, Identifying and preventing risk factor s, Monitoring and reporting current medical conditions, Assisting with ambulation and transfer, Amberly ting with all ADL-s, Teaching patients about disease process and medications, Family teaching, Provid ing safe environment, Bowel and Bladder Issues, Skin Integrity, and Medication Management. Patient needs Color Technician and/or Case Management for: Discharge Planning, Arranging Home Equipmen t or Services, and Family Interventions. - Dietary and Nutrition Services Patient needs Dietary and Nutrition Services for: Adequate Nutrition, Nutritional Supplements, and Nu tritional Education. - Occupational Therapy Patient needs Occupational Therapy for a daily minimum of 1.5 hours at least 5 out of 7 days, to impr ove Activities of Daily Living, including: Eating, Grooming, Bathing, Dressing, Toileting, Toilet Tra nsfers, Community Reintegration, Higher functional activities, Adaptive Equipment, Splinting, Househo ld Tasks, and Other activities as determined. QI SCORES: - Self-Care A. Eating 04-Supervision or touching assistance B. Oral hygiene 04-Supervision or touching assistance C. Toileting hygiene 02-Substantial/maximal assistance E. Shower/bathe self 02-Substantial/maximal assistance F. Upper body dressing 03-Partial/moderate assistance G. Lower body dressing 02-Substantial/maximal assistance H. Putting on/taking off footwear - Mobility A. Roll left and right 04-Supervision or touching assistance B. Sit to lying 04-Supervision or touching assistance C. Lying to sitting on side of bed 04-Supervision or touching assistance D. Sit to stand 03-Partial/moderate assistance E. Chair/shp-lw-onjpa transfer 04-Supervision or touching assistance F. Toilet transfer 04-Supervision or touching assistance G. Car transfer 88-Not attempted due to medical condition or safety concerns I. Walk 10 feet 88-Not attempted due to medical condition or safety concerns J. Walk 50 feet with two turns 88-Not attempted due to medical condition or safety concerns K. Walk 150 feet 88-Not attempted due to medical condition or safety concerns L. Walking 10 feet on uneven surfaces 88-Not attempted due to medical condition or safety concerns M. 1 step (curb) 88-Not attempted due to medical condition or safety concerns N. 4 steps 88-Not attempted due to medical condition or safety concerns O. 12 steps 88-Not attempted due to medical condition or safety concerns P. Picking up object 88-Not attempted due to medical condition or safety concerns - Bladder and Bowel Bladder continence Bowel continence - Endurance Good - Balance Good - Safety Awareness Good POTENTIAL FUNCTIONAL GOALS FOR PATIENT TO ACHIEVE BY DISCHARGE: - Safety Precaution Patient will remain free from falls or injury at time of discharge. - Bed Mobility Patient will perform bed mobility at 4-Norman level of assistance. - Transfers Patient will complete transfers from bed to chair at 4-Norman level of assistance. - Mobility Patient will ambulate 150 ft with 4-Norman level of assistance with RW. PATIENT REHAB POTENTIAL Alivia SIM is able and expected to receive 3 hours of individualized therapy daily on at least 5 of e very 7 days Alivia SIM's prognosis for significant practical improvement within a reasonable period of time appea rs Good Expected level of measurable improvement will be of a practical value to Alivia SIM's functional capa city or adaptations to impairments Has a viable Discharge Plan Medically appropriate; condition is sufficiently stable to participate in intensive rehab program DISCHARGE PLAN: - Estimated Length of Stay (days) 17. - Consensus on plan Discharge plan has been discussed with primary caregiver. Patient/Family is in agreement with the wang n. Primary caregiver is in agreement with the plan. - Patient/Family Goals Return home with assistance. - Planned Living Setting Upon Discharge Home, to live with Spouse. CONCLUSION ON REHABILITATION NECESSITY: I have evaluated patient's pre-admission functional status and, comparing it to the patient's post-ad mission functional status now, I conclude that the pre-admission assessment was accurate. Patient's c ondition on admission supports the medical necessity of admission to IRF. It is safe to proceed with patient's therapy program. SIGNATURE PANEL: (CDT)
[2020-03-19 18:34] LABS: Platelet Estimate ADEQ
[2020-03-19 18:35] LABS: Blood Morphology Comment NOT SEEN (NOT SEEN)
[2020-03-19] MEDS: IPRATROPIUM 200 PUFF/12.9 GM INH IH PRN (19:35)
[2020-03-19] MEDS: MAGNESIUM OXIDE 400 MG TAB PO SCH (19:36)
[2020-03-19] MEDS: APIXABAN 2.5 MG TABLET PO SCH (19:36)
[2020-03-19] MEDS: ASPIRIN EC 81 MG TAB PO SCH (20:13)
[2020-03-19] MEDS: ENSURE ENLIVE 237 ML CAN PO SCH (20:14)
[2020-03-19] MEDS: CLOPIDOGREL 75 MG TABLET PO SCH (20:14)
[2020-03-19] MEDS: ATORVASTATIN 40 MG TAB PO SCH (20:14)
[2020-03-19] MEDS: QUETIAPINE 25 MG TAB PO SCH (23:33)
[2020-03-20] MEDS: HYDROCODONE/APAP 5/325 MG TAB PO PRN ×3 (00:14→10:37)
[2020-03-20] MEDS: ARFORMOTEROL TARTRATE 15 MCG/2 ML VIAL.NEB IH SCH ×2 (07:49→20:00)
[2020-03-20] MEDS: MAGNESIUM OXIDE 400 MG TAB PO SCH ×2 (07:57→19:46)
[2020-03-20] MEDS: predniSONE 10 MG TAB PO SCH (07:57)
[2020-03-20] MEDS: METOPROLOL TAR 50 MG TAB PO SCH ×2 (07:57→19:45)
[2020-03-20] MEDS: APIXABAN 2.5 MG TABLET PO SCH ×2 (07:58→19:45)
[2020-03-20] MEDS: NICOTINE 21 MG/PAT TD SCH (08:00)
[2020-03-20] MEDS: IPRATROPIUM 200 PUFF/12.9 GM INH IH PRN ×2 (08:03→17:11)
[2020-03-20] MEDS: ENSURE ENLIVE 237 ML CAN PO SCH ×4 (08:17→19:46)
--- NOTE | 2020-03-20 09:54 | P.RH.PN ---
Estimated Length of Stay: 8 Expected Discharge Date: 03/25/20 Discharge Disposition Plan: Home Family Support: Yes Director Script Goal: Mobility, Transfers, Self Care Vital Signs: Last Vital Signs Temp 97 F 03/20/20 08:04 Pulse 96 H 03/20/20 08:04 Resp 16 03/20/20 08:04 BP 127/82 03/20/20 08:04 Pulse Ox 93 03/20/20 08:04 Laboratory: Laboratory Last Values WBC 14.3 K/uL (4.3-10.9) H 03/19/20 14:42 RBC 4.92 M/uL (4.33-5.43) 03/19/20 14:42 Hgb 16.6 g/dL (13.6-17.9) 03/19/20 14:42 Hct 49.0 % (39.6-49.0) 03/19/20 14:42 MCV 99.5 fL (80-100) 03/19/20 14:42 MCH 33.7 pg (27.0-35.0) 03/19/20 14:42 MCHC 33.8 g/dL (32.0-36.0) 03/19/20 14:42 RDW 13.9 % (12.1-15.2) 03/19/20 14:42 Plt Count 289 K/uL (152-406) 03/19/20 14:42 MPV 6.9 fL (7.6-11.3) L 03/19/20 14:42 Neutrophils % 76.8 % (41.7-73.7) H 03/19/20 14:42 Lymphocytes % 9.7 % (15.3-44.8) L 03/19/20 14:42 Monocytes % 12.2 % (3.3-12.3) 03/19/20 14:42 Eosinophils % 0.4 % (0-4.4) 03/19/20 14:42 Basophils % 0.9 % (0-1.3) 03/19/20 14:42 Absolute Neutrophils 11.0 K/uL (1.8-8.0) H 03/19/20 14:42 Segmented Neutrophils 74 % (40-80) 03/19/20 14:42 Band Neutrophils 2 % (0-1) H 03/19/20 14:42 Absolute Lymphocytes 1.4 K/uL (0.7-4.9) 03/19/20 14:42 Lymphocytes 11 % (15-42) L 03/19/20 14:42 Monocytes 13 % (0-10) H 03/19/20 14:42 Absolute Monocytes 1.7 K/uL (0.1-1.3) H 03/19/20 14:42 Absolute Eosinophils 0.1 K/uL (0-0.5) 03/19/20 14:42 Absolute Basophils 0.1 K/uL (0-0.5) 03/19/20 14:42 Morphology Comment Not seen (NOT SEEN) 03/19/20 14:42 Sodium 136 mmol/L (136-145) 03/19/20 14:42 Potassium 4.3 mmol/L (3.5-5.1) 03/19/20 14:42 Chloride 101 mmol/L (98-107) 03/19/20 14:42 Carbon Dioxide 30 mmol/L (21-32) 03/19/20 14:42 BUN 19 mg/dL (7-18) H 03/19/20 14:42 Creatinine 0.60 mg/dL (0.55-1.3) 03/19/20 14:42 Estimated GFR > 90 mL/min (=/>90) 03/19/20 14:42 Glucose 101 mg/dL (74-106) 03/19/20 14:42 Calcium 9.1 mg/dL (8.5-10.1) 03/19/20 14:42 Magnesium 2.0 mg/dL (1.8-2.4) 03/19/20 14:42 Albumin 3.0 g/dL (3.4-5.0) L 03/19/20 14:42 Prealbumin 26.6 mg/dL (20-40) 03/19/20 14:42 Urine Color Yellow 03/18/20 22:30 Urine Appearance Clear 03/18/20 22:30 Urine pH 7.5 (5.0-7.0) H 03/18/20 22:30 Ur Specific [place] 1.010 (1.005-1.030) 03/18/20 22:30 Glucose (UA)(Auto) Negative (NEG) 03/18/20 22:30 Urine Ketones Negative (NEG) 03/18/20 22:30 Urine Blood Negative (NEG) 03/18/20 22:30 Urine Nitrite Negative (NEG) 03/18/20 22:30 Urine Bilirubin Negative (NEG) 03/18/20 22:30 Urine Urobilinogen 1.0 mg/dL (0.2-1.0) 03/18/20 22:30 Ur Leukocyte Esterase Negative (NEG) 03/18/20 22:30 Urine RBC None seen /HPF (NONE SEEN) 03/18/20 22:30 Urine WBC None seen /HPF (<5) 03/18/20 22:30 Ur Squamous Epith Cells FOOTBALL PAD REPAIRER 03/18/20 22:30 Urine Bacteria <20 /HPF (NONE SEEN) 03/18/20 22:30 Urine Culture Reflexed Not needed 03/18/20 22:30 Urine Total Protein Negative (NEG) 03/18/20 22:30 SARS-CoV-2 RNA (RT-PCR) Negative (NEGATIVE) 03/19/20 06:50 Weight: 111 lb Wound Present: No Closed Surgical Incision Present: No Negative Pressure Wound Therapy Present: No Physician Update: Labs reviewed with an elevated WBC to 14.3 and elevated neutrophils of 76.8, and ANC of 11.0. His chest x-ray suggests a possible right lung pneumonia. His BUN is mildly elevated to 19. He walked 5' maximum assistance using a hemiwalker. He is cursing at the staff and refusing therapy at times. He is also refusing medical care and blood draws at times. The patient is requesting DNR status, will discuss with the patient. Functional Improvement: pt presents with severe R sided weakness following CVA. pt exhibits poor balance and stability during ambulation and functional transfers. pt exhibits R foot drop as well. pt experiences poor tolerance to functional activity due to fatigue, weakness, and shortness of breath. Skilled PT services are necessary to address the above mentioned impairments and functional limitations. Summary: Patient's care plan and rn long term care goals have been reviewed and revised as necessary. Please see the Rehabilitation Signature page for all necessary signatures.
[2020-03-20] MEDS ORDERED: NA CHLORIDE 0.9% 1,000 ML IV SCH (13:00)
--- NOTE | 2020-03-20 15:12 | RAD REPORT ---
EXAM DESCRIPTION: RAD - Barium Swallow Modified - 03/20/2020 3:07 pm CLINICAL HISTORY: Dysphagia/CVA FINDINGS: LARYNGEAL PENETRATION: NOT CLEARED (THIN) ASPIRATION: DELAYED COUGH WITH THIN PHARYNGEAL RESIDUE: VALLECULAR AND PYRIFORM (SEVERE WITH HONEY AND PUDDING) Fluoroscopy time 2.2 minutes. Twenty-one fluoroscopic spot series obtained
[2020-03-20] MEDS ORDERED: ACETAMINOPHEN 160 MG/5 ML UCUP PO PRN (15:36)
[2020-03-20] MEDS: NA CHLORIDE 0.9% 1,000 ML IV SCH (15:50)
[2020-03-20] MEDS: Levofloxacin500mg IV 500 MG/100 ML BAG IV SCH (15:52)
[2020-03-20] MEDS ORDERED: SODIUM CHL 0.9% 1000 ML BAG IV SCH (16:00)
[2020-03-20] MEDS: LIDOCAINE 4% PATCH TOP SCH (16:23)
--- NOTE | 2020-03-20 17:18 | FAST ---
QUALITY INDICATORS FORM SHIFT START DATE/TIME: 03/20/2020 07:00 (CDT) SHIFT END DATE/TIME: 03/20/2020 19:00 (CDT) NAME TRICE SIM DATE OF : 1955 DATE OF ADMISSION: 03/18/2020 20:01 (CDT) PHONE: AGE: 65 N# [id number] GENDER: Male ENCOUNTER PHYSICIAN: Dr. Adiel Marroquin M.D. ADMISSION DIAGNOSIS: - Stroke 01 - Right Body (Left Brain) (01.2) acute left medullary lucunar infarct . EATING: EATING - STEP 1: Does the patient complete the activity by him/herself with no assistance (physical, verbal/nonverbal cueing, setup/clean-up)? No. EATING - STEP 2: Does the patient need only setup/clean-up assistance from one helper? No. EATING - STEP 3: Does the patient need only verbal/nonverbal cueing or touching/steadying/contact guard assistance fro m one helper? No. EATING - STEP 4: Does the patient need physical assistance - for example lifting or trunk support from one helper - wi th the helper providing less than half of the effort? Yes. 1. [id number] ADMISSION PERFORMANCE: Partial/moderate assistance CODE: 03 ORAL HYGIENE: ORAL HYGIENE - STEP 1: Does the patient complete the activity by him/herself with no assistance (physical, verbal/nonverbal cueing, setup/clean-up)? No. ORAL HYGIENE - STEP 2: Does the patient need only setup/clean-up assistance from one helper? Yes. 1. [id number] ADMISSION PERFORMANCE: Setup or clean-up assistance CODE: 05 TOILETING HYGIENE: TOILETING HYGIENE - STEP 1: Does the patient complete the activity by him/herself with no assistance (physical, verbal/nonverbal cueing, setup/clean-up)? No. TOILETING HYGIENE - STEP 2: Does the patient need only setup/clean-up assistance from one helper? No. TOILETING HYGIENE - STEP 3: Does the patient need only verbal/nonverbal cueing or touching/steadying/contact guard assistance fro m one helper? No. TOILETING HYGIENE - STEP 4: Does the patient need physical assistance - for example lifting or trunk support from one helper - wi th the helper providing less than half of the effort? Yes. 1. [id number] ADMISSION PERFORMANCE: Partial/moderate assistance CODE: 03 BATHING: Not assessed/no information CODE: - DRESSING - UPPER BODY: Not assessed/no information CODE: - DRESSING - LOWER BODY: Not assessed/no information CODE: - PUTTING ON/TAKING OFF FOOTWEAR: Not assessed/no information CODE: - ROLL LEFT AND RIGHT: Not assessed/no information CODE: - SIT TO LYING: Not assessed/no information CODE: - LYING TO SITTING: Not assessed/no information CODE: - SIT TO STAND: Not assessed/no information CODE: - TRANSFERS: BED, CHAIR: Not assessed/no information CODE: - TRANSFER TOILET: Not assessed/no information CODE: - TRANSFERS: CAR: Not assessed/no information CODE: - WALK 10 FEET: Not assessed/no information CODE: - 1 STEP (CURB): Not assessed/no information CODE: - PICKING UP OBJECT: Not assessed/no information CODE: - DOES THE PATIENT USE A WHEELCHAIR/SCOOTER? CODE: EXPR WHEEL 50 FEET WITH TWO TURNS: Not assessed/no information CODE: - INDICATE THE TYPE OF WHEELCHAIR/SCOOTER USED: CODE: EXPR WHEEL 150 FEET: Not assessed/no information CODE: - INDICATE THE TYPE OF WHEELCHAIR/SCOOTER USED: CODE: EXPR BLADDER AND BOWEL: H350. BLADDER CONTINENCE (3-DAY ASSESSMENT PERIOD): Stress incontinence only CODE: 1 H400. BOWEL CONTINENCE (3-DAY ASSESSMENT PERIOD): Always continent CODE: 0 SIGNATURE PANEL: The following modified sections: 1. [id number] Admission Performance, 1. [id number] Admission Performance, 1. [id number] Admission Performance, 1. [id number] Admission Performance, Code, H350. Bladder Continence (3 -day assessment period), H400. Bowel Continence (3-day assessment period) were [electronically] rocky d by Emerson Woodward on MonMar 20 2020 17:17:28 GMT-0500 (Central Daylight Time)
[2020-03-20] MEDS: ASPIRIN EC 81 MG TAB PO SCH (19:46)
[2020-03-20] MEDS: ATORVASTATIN 40 MG TAB PO SCH (19:46)
[2020-03-20] MEDS: CLOPIDOGREL 75 MG TABLET PO SCH (19:46)
[2020-03-20] MEDS: QUETIAPINE 25 MG TAB PO SCH (19:47)
[2020-03-20] MEDS: LORazepam 2 MG/ML VIAL IV PRN (20:40)
[2020-03-20] MEDS ORDERED: LORazepam 2 MG/ML VIAL ONE (20:47)
[2020-03-21] MEDS: IPRATROPIUM 200 PUFF/12.9 GM INH IH PRN ×3 (01:40→15:30)
[2020-03-21] MEDS: NA CHLORIDE 0.9% 1,000 ML IV SCH ×3 (01:40→22:25)
[2020-03-21] MEDS: METOPROLOL TAR 50 MG TAB PO SCH ×2 (08:00→19:46)
[2020-03-21] MEDS: MAGNESIUM OXIDE 400 MG TAB PO SCH ×2 (08:00→19:46)
[2020-03-21] MEDS: predniSONE 10 MG TAB PO SCH (08:00)
[2020-03-21] MEDS: ARFORMOTEROL TARTRATE 15 MCG/2 ML VIAL.NEB IH SCH ×2 (08:01→20:00)
[2020-03-21] MEDS: LIDOCAINE 4% PATCH TOP SCH ×2 (08:27→13:37)
[2020-03-21] MEDS: HEPARIN 5000 UNIT/ML 1 ML VIAL SQ SCH ×2 (08:30→18:06)
[2020-03-21] MEDS: ENSURE ENLIVE 237 ML CAN PO SCH ×3 (08:36→19:46)
[2020-03-21] MEDS: NICOTINE 21 MG/PAT TD SCH (08:38)
[2020-03-21] MEDS: Levofloxacin500mg IV 500 MG/100 ML BAG IV SCH (12:55)
[2020-03-21] MEDS ORDERED: LORazepam 2 MG/ML VIAL IV ONE (16:07)
[2020-03-21] MEDS ORDERED: JEVITY 1.5 CAL LIQUID 1,000 ML BOT FT SCH (17:00)
--- NOTE | 2020-03-21 18:24 | RAD REPORT ---
EXAM DESCRIPTION: RAD - Chest Single View - 03/21/2020 5:51 pm CLINICAL HISTORY: Device placement Dobhoff tube placement IMPRESSION: Dobhoff tube enters the left mainstem bronchus. The tip lies within a left lower lobe b ronchus . The patient's nurse Jessy was notified at 6:20 p.m. March 21, 2020
[2020-03-21] MEDS ORDERED: MEPERIDINE HCL 25 MG/ML SYR IV ONE (18:39)
[2020-03-21] MEDS ORDERED: PROMETHAZINE INJ 25 MG/ML AMP IV ONE (18:39)
[2020-03-21] MEDS: QUETIAPINE 25 MG TAB PO SCH (19:46)
[2020-03-21] MEDS: ATORVASTATIN 40 MG TAB PO SCH (19:46)
[2020-03-21] MEDS ORDERED: ALBUTEROL 2.5 MG/3 ML NEB SOL NEB SCH (20:00)
[2020-03-21] MEDS ORDERED: IPRATROPIUM BROM 0.5MG/2.5ML NEB SCH (20:00)
[2020-03-21] MEDS ORDERED: ALBUTEROL 2.5 MG/3 ML NEB SOL ONE (20:03)
[2020-03-21] MEDS ORDERED: IPRATROPIUM BROM 0.5MG/2.5ML ONE (20:04)
[2020-03-21] MEDS: IPRATROPIUM 200 PUFF/12.9 GM INH IH SCH (21:00)
--- NOTE | 2020-03-21 21:16 | CON ---
Date of Consultation: 03/21/2020 Reason For Consultation: Dysphagia, need for alternative route for enteral nutrition, status post dense MCA stroke. History Of Present Illness: The patient is a 65-year-old white male with history of hypertension, atrial fibrillation, tobacco abuse, and COPD. The patient presented from [facility] and transferred to the rehab unit due to his left MCA stroke with severe right hemiparesis, dysphasia, and dysphagia. The patient failed swallow study yesterday on March 20, 2020 and has a probable right lower lobe aspiration pneumonia as well and is now on antibiotics. His ASA/Plavix were held on 03-19-20; his last dose of Eliquis was yesterday. Past Medical History: Significant for hypertension, atrial fibrillation, tobacco abuse, COPD, and now left MCA dense stroke with right hemiparesis, dysphasia, and dysphagia. He has been on aspirin and Plavix, last dose was on March 19, 2020 and Eliquis last dose on March 20, 2020, yesterday. Social History: . Positive for tobacco and alcohol. No kids. Family History: Father of stroke at the age of 92. He had 2 strokes and mother is alive and well he reports. Review of Systems: He has right hemiparesis, can move his right side very well; dysphasia and speaks very well; and dysphagia, can swallow well with a failed swallow study. Current Medications: In hospital include Tylenol, Kirkman, Proventil, Brovana, Lipitor, Mucinex, heparin, Atrovent, Cefolac, Levaquin, lidocaine, Ativan, magnesium oxide, Lopressor, NicoDerm patch, prednisone, Seroquel, Ultram, and trazodone. Allergies: NKDA. Physical Examination: Vital Signs: He is 6 feet, 105 pounds, BMI of 14.3 kg/m2. HEENT: Normocephalic, atraumatic. Anicteric. Pupils equal, round, and reactive to light. Extraocular movements intact. Oropharynx clear. Neck: Supple. No masses. He has some slight difficulty with chin raise and smiling, particularly on the left side. Cardiac: Regular rate and rhythm. No gallops or rubs. Abdomen: Positive bowel sounds. Soft, nontender, nondistended. No hepatosplenomegaly. Extremities: No clubbing, cyanosis, or edema. 2+ pulses. Neuro: Alert, oriented x3 with problem with smiling. Partial facial droop or paralysis on the left side it appears. Had a dense right hemiparesis, upper and lower extremities. His speech was somewhat slurred due to his stroke. He could not make out his words if he try to get that done well. Laboratory Data: The patient has a white count of 14.3 on the , hemoglobin 16.6, hematocrit 49, MCV of 99.5, platelet count 289, polys of 77%, lymphocytes 10%, monocytes 12%, eosinophils 0.4. The patient's sodium of 136, potassium 4.3, chloride 101, bicarb 30, BUN of 19, creatinine of 0.6, glucose 101, calcium 9.1, magnesium 2.0. Albumin 3.0, prealbumin of 26.6. UA revealed a pH 7.5 and was negative. COVID test was negative as well. Modified barium swallow performed yesterday on the failed with penetration at the larynx noted consistent with high risk for aspiration. Also delayed cough, especially severe with honey and pudding. Chest x-ray on the , 2 days ago, revealed fibrotic lung pattern, not substantially different from comparison. Chronic changes in the right lung base, potentially mass or an infiltrate, so possible pneumonia developing in the right base it appears. Impression: 1. Dysphagia, failed swallow study on March 20, 2020, probable right lower lobe aspiration pneumonia, currently on IV antibiotics, Levaquin. 2. Dense left mid cerebral artery stroke last week with right hemiparesis, dysphasia, and dysphagia. Aspirin and Plavix have been held since the . Eliquis was held yesterday. 3. History of hypertension, atrial fibrillation, tobacco, and chronic obstructive pulmonary disease. Recommendations: 1. Placed Dobhoff tube now and Jevity 1.5 tube feeds. He agrees to this now considering the other possibility would be to give platelets to put a PEG tube in today. Currently, he does not want to take the risk of stroke with a platelet transfusion. 2. Hold aspirin and Plavix. 3. Continue Eliquis or Lovenox until 2 days before for the Eliquis or 1 day before for the Lovenox to hold anticoagulant before EGD with PEG tube placement. 4. EGD with PEG tube placement on March 242019. WS/MODL Voice ID: [id number] Report ID: [id number] ASHLEE
[2020-03-21] MEDS: LORazepam 2 MG/ML VIAL IV PRN (23:46)
[2020-03-22] MEDS: HEPARIN 5000 UNIT/ML 1 ML VIAL SQ SCH ×2 (06:03→08:00)
[2020-03-22] MEDS: LORazepam 2 MG/ML VIAL IV PRN ×2 (07:15→12:56)
[2020-03-22] MEDS: NA CHLORIDE 0.9% 1,000 ML IV SCH (07:15)
[2020-03-22] MEDS: METOPROLOL TAR 50 MG TAB PO SCH ×3 (08:00→20:23)
[2020-03-22] MEDS: predniSONE 10 MG TAB PO SCH ×2 (08:00→09:27)
[2020-03-22] MEDS: IPRATROPIUM 200 PUFF/12.9 GM INH IH SCH ×4 (08:00→20:00)
[2020-03-22] MEDS: MAGNESIUM OXIDE 400 MG TAB PO SCH ×3 (08:00→20:22)
[2020-03-22] MEDS: ARFORMOTEROL TARTRATE 15 MCG/2 ML VIAL.NEB IH SCH ×2 (08:12→19:35)
--- NOTE | 2020-03-22 08:22 | RAD REPORT ---
EXAM DESCRIPTION: RAD - Chest Single View - 03/22/2020 8:05 am CLINICAL HISTORY: Device placement Dobhoff tube placement IMPRESSION: The tip of a Dobhoff tube lies within the gastric fundus 9 centimeters from the GE junct ion
[2020-03-22] MEDS: ENSURE ENLIVE 237 ML CAN PO SCH (09:00)
[2020-03-22] MEDS: LIDOCAINE 4% PATCH TOP SCH (09:26)
[2020-03-22] MEDS: NICOTINE 21 MG/PAT TD SCH (09:26)
[2020-03-22 09:59] LABS: Absolute Lymphocytes (CBC) 1.2 K/uL (0.7-4.9); Basophils % 0.4 % (0-1.3); Hematocrit 41.7 % (39.6-49.0); Lymphocytes % 14.7 % (15.3-44.8); MPV 6.6 fL (7.6-11.3); RBC Red Blood Cell Count 4.21 M/uL (4.33-5.43)
[2020-03-22 10:16] LABS: BUN Blood Urea Nitrogen 23 mg/dL (7-18); Bicarbonate 25 mmol/L (21-32); Glucose Level 80 mg/dL (74-106); Magnesium 1.8 mg/dL (1.8-2.4); Potassium 3.5 mmol/L (3.5-5.1); Sodium Level 138 mmol/L (136-145)
[2020-03-22] MEDS: ENOXAPARIN 40 MG/0.4 ML SQ SCH ×2 (10:35→20:22)
[2020-03-22] MEDS: Levofloxacin500mg IV 500 MG/100 ML BAG IV SCH (12:58)
--- NOTE | 2020-03-22 13:41 | RAD REPORT ---
EXAM DESCRIPTION: RAD - Chest Single View - 03/22/2020 1:28 pm CLINICAL HISTORY: check dobbhoff placement COMPARISON: Portable March 22 TECHNIQUE: AP portable chest image was obtained 03/22/2020 1:28 pm . FINDINGS: Feeding tube is again noted. Tip is in the medial left upper quadrant. No abnormal bend or kink of the tubing identified. Tube is not quite as far into the lumen of the stomach as was seen on the earlier examination. IMPRESSION: Dobbhoff tube is in place within the lumen of the stomach. Tip is not quite as far into the lumen of the stomach as was seen on the earlier study.
[2020-03-22] MEDS: HYDROCODONE/APAP 5/325 MG TAB PO PRN ×2 (14:03→20:23)
--- NOTE | 2020-03-22 14:27 | RAD REPORT ---
EXAM DESCRIPTION: RAD - Chest Single View - 03/22/2020 12:54 am CLINICAL HISTORY: NGT placement COMPARISON: None. TECHNIQUE: XR CHEST 1 VIEW 03/22/2020 12:18 AM CDT FINDINGS: Cardiac silhouette is normal in size. Lungs are clear without consolidation, atelectasis, mass or edema. There is no pleural effusion. There is no pneumothorax. There are no acute osseous fin dings. NG tube tip is below the diaphragm. IMPRESSION: NG tube tip below the diaphragm. Electronically signed by: Mann Collado MD 03/22/2020 1:12 AM CDT Due to temporary technical issues with the PACS/Fluency reporting system, reports are being signed by the in house radiologist without review as a courtesy to ensure prompt reporting. The interpreting r adiologist is fully responsible for the content of the report.
[2020-03-22] MEDS ORDERED: guaiFENesin 100 MG/5 ML UCUP PO PRN (16:26)
[2020-03-22] MEDS ORDERED: NA CHLORIDE 0.9% 1,000 ML IV SCH (16:28)
[2020-03-22] MEDS: ATORVASTATIN 40 MG TAB PO SCH (20:22)
[2020-03-22] MEDS: QUETIAPINE 25 MG TAB PO SCH (20:22)
[2020-03-23] MEDS: TRAZODONE 50 MG TABLET PO PRN (00:29)
[2020-03-23] MEDS: TRAMADOL HCL 50 MG TAB PO PRN ×2 (00:29→12:19)
[2020-03-23] MEDS: ENOXAPARIN 40 MG/0.4 ML SQ SCH ×2 (06:56→21:15)
[2020-03-23] MEDS: IPRATROPIUM 200 PUFF/12.9 GM INH IH SCH ×4 (07:18→21:15)
[2020-03-23] MEDS: MAGNESIUM OXIDE 400 MG TAB PO SCH ×2 (07:19→21:14)
[2020-03-23] MEDS: METOPROLOL TAR 50 MG TAB PO SCH ×2 (07:19→21:14)
[2020-03-23] MEDS: predniSONE 10 MG TAB PO SCH (07:19)
[2020-03-23] MEDS: HYDROCODONE/APAP 5/325 MG TAB PO PRN ×2 (07:19→21:16)
[2020-03-23] MEDS: ARFORMOTEROL TARTRATE 15 MCG/2 ML VIAL.NEB IH SCH ×2 (07:55→20:50)
[2020-03-23] MEDS: LIDOCAINE 4% PATCH TOP SCH (09:06)
[2020-03-23] MEDS: NICOTINE 21 MG/PAT TD SCH (09:24)
[2020-03-23] MEDS: JEVITY 1.5 CAL LIQUID 1,000 ML BOT RTH SCH (10:54)
[2020-03-23] MEDS: Levofloxacin500mg IV 500 MG/100 ML BAG IV SCH (12:24)
--- NOTE | 2020-03-23 17:38 | R.PN ---
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 Pt denied any depression. Mr. Sim has a dense right hemiparesis and severe dysphasia after his left MCA stroke. He refused to do therapy with multiple therapists on several occasions. He is voicing and posting thoughts of lamar icidal ideation. However, he agreed to have a Dobhoff placed and have a PEG tube now scheduled for . He did supine exercises in bed today. WBC 8.0, Ca is mildly low at 8.1., UA is negative. COVID-19 is negative. VITAL SIGNS Temperature: 98.4 F SBP/DBP: 143/90 Pulse: 87 Resp: 16 MEDICATION ALLERGIES: No Known Drug Allergies (NKDA) ENVIRONMENTAL ALLERGIES: None Known - Substance Allergies None Known - Other Allergies None Known NURSING: - Shower allowing shower - Bladder care per protocol - Skin care per protocol PRECAUTIONS: - Weight Bearing Precaution WBAT right LE ACTIVITIES OOB only with supervision THERAPIES: - Occupational Therapy Cognitive Retraining. Visual Perceptual Training. - Dietary and Nutrition Adequate Nutrition. Nutritional Education. Nutritional Supplements. - Speech Therapy Cognitive Training. Expressive Language Skills. Memory Strategies. Receptive Language Skills. Speech Intelligibility Training. PHYSICAL EXAM - Gen Alert and awake Lying in bed No apparent distress Oriented to: person, time, and place - Skin No skin breakdown. Normacephalic - Eyes No abnormalities - ENMT No abnormalities - Neck No abnormalities No cervical adenopathy - CVS IRIR - Chest Mildly decreased breath sounds bilaterally. - Resp No crackles - Abd Soft - GI Soft Deferred - No abnormalities - Ext No significant edema - MSK 0-1+/5 weakness in right upper and lower extremity. - Neuro 0-1+/5 weakness in right upper and lower extremity. - Psych Mild anxiety. ASSESSMENT: Pt. is a 65 yo Right-handed white male.On 03/12/2020 Pt. presented to [facility] with sudden onset of right-side weakness.On 03/12/2020 he was admitted to [facility] with diagnosis acute left medu llary lucunar infarct .His impairment category is Stroke 01 - Right Body (Left Brain) (01.2).Pre-m orbidly, Pt. was independent/mod-I in Transfers Control and Locomotion; and he had good Balance, Soci al Cognition, Communication, and Sphincter Control.Currently, he has deficits of Transfers Control, B alance, Locomotion, Self-Care, Safety Awareness, Social Cognition, and Communication.Pt. is now refer red to [facility] for acute in-patient rehabilitation in order to maximize pat ient's functional independence in activities of daily living, strength, ROM, and mobility.- Rehab Goa l Patient has realistic goal of being discharged at assistance level 6-Narda to reside at Home with Spo use. MDM/PLAN: - Physical Therapy Inability to transfer - to improve, our physical therapists will perform initial evaluation of pt's status upon admission and devise an individualized program for Bed mobility Need for home safety evaluation - to improve, our physical therapists will perform initial evaluatio n of pt's status upon admission and devise an individualized program for Home Evaluation Need in caregiver upon discharge - to improve, our physical therapists will perform initial evaluati on of pt's status upon admission and devise an individualized program for Caregiver Training Edema - to improve, our physical therapists will perform initial evaluation of pt's status upon admis bubba and devise an individualized program for Elevation Training, and Lymphedema Therapy New precaution - to improve, our physical therapists will perform initial evaluation of pt's status upon admission and devise an individualized program for Patient precaution education Poor balance - to improve, our physical therapists will perform initial evaluation of pt's status up on admission and devise an individualized program for Balance Training Achieving independence - to improve, our physical therapists will perform initial evaluation of pt's status upon admission and devise an individualized program for Community Reintegration Activities - Occupational Therapy ADL deficits - to improve, our occupation therapists will perform initial evaluation of pt's status upon admission and devise an individualized program for Bathing, Bed mobility, Community Reintegratio n, Cooking, Dressing, Eating, Fine Motor Skills, Grooming, Homemaking, Kitchen Mobility, Laundry, Pat ient Education, Safety Awareness, Splinting - Positioning, Transfers(Toilet, Tub, Shower), and Wheel Chair Management Cognitive deficits - to improve, our occupation therapists will perform initial evaluation of pt's s tatus upon admission and devise an individualized program for Cognition - orientation Need for transitional care nurse - to improve, our occupation therapists will perform initial evaluation of pt's status upon admission and devise an individualized program for Caregiver Training - Other See attached MAR (Medication Administration Record) - Diet Type Continue Regular - Diet - Liquid Texture Continue Regular - Tube Feed Continue N/A - Bladder care per protocol - Weight Bearing Precaution WBAT right LE - Skin care per protocol - Diet - Solid Texture Continue Regular - Shower allowing shower for Dementia, TBI, Stroke, or others FUNCTIONAL STATUS: UPDATED AT WEEKLY TEAM CONFERENCE - Walking Same score based on distance walked: 1(<=50ft) FUNCTIONAL STATUS: - Self-Care A. Eating maxA B. Grooming modA C. Bathing maxA D. Dressing - Upper modA E. Dressing - Lower maxA F. Toileting modA - Sphincter Control G. Bladder control modA H. Bowel control modA - Transfers Control I. Bed/Chair/Wheelchair maxA J. Toilet modA K. Tub/Shower maxA - Locomotion L. Walk/Wheelchair (W) maxA M. Stairs ADNO - Communication N. Comprehension (B) sup O. Expression (B) sup - Social Cognition P. Social Interaction Norman Q. Problem Solving modA R. Memory sup - Endurance Poor - Balance Poor - Safety Awareness Poor QI SCORES: - Self-Care A. Eating 04-Supervision or touching assistance B. Oral hygiene 04-Supervision or touching assistance C. Toileting hygiene 02-Substantial/maximal assistance E. Shower/bathe self 02-Substantial/maximal assistance F. Upper body dressing 03-Partial/moderate assistance G. Lower body dressing 02-Substantial/maximal assistance H. Putting on/taking off footwear - Mobility A. Roll left and right 04-Supervision or touching assistance B. Sit to lying 04-Supervision or touching assistance C. Lying to sitting on side of bed 04-Supervision or touching assistance D. Sit to stand 03-Partial/moderate assistance E. Chair/[id number] transfer 04-Supervision or touching assistance F. Toilet transfer 04-Supervision or touching assistance G. Car transfer 88-Not attempted due to medical condition or safety concerns I. Walk 10 feet 88-Not attempted due to medical condition or safety concerns J. Walk 50 feet with two turns 88-Not attempted due to medical condition or safety concerns K. Walk 150 feet 88-Not attempted due to medical condition or safety concerns L. Walking 10 feet on uneven surfaces 88-Not attempted due to medical condition or safety concerns M. 1 step (curb) 88-Not attempted due to medical condition or safety concerns N. 4 steps 88-Not attempted due to medical condition or safety concerns O. 12 steps 88-Not attempted due to medical condition or safety concerns P. Picking up object 88-Not attempted due to medical condition or safety concerns - Bladder and Bowel Bladder continence Bowel continence - Endurance Good - Balance Good - Safety Awareness Good CURRENT FUNC. DEFICITS: Self-Care and Mobility SIGNATURE PANEL: (CDT)
--- NOTE | 2020-03-23 19:44 | P.PN ---
Subjective Date of Service: 03/22/20 Chief Complaint: Dysphagia, s/p left MCA stroke, aspiration pneumonia Subjective: New changes (Agreed to Dobhoff tube, finally placed and TFs started.) Review of Systems 10-point ROS is otherwise unremarkable General: Weakness, Malaise Neurological: Incoordination (s/p CVA) Physical Examination - Vital Signs Temperature: 99 F Blood Pressure: 117/67 Pulse: 90 Respirations: 16 Pulse Ox (%): 93 - Physical Exam General: Alert, In no apparent distress, Oriented x3 HEENT: Atraumatic, Normocephalic Neck: Supple Respiratory: Normal air movement Cardiovascular: Normal pulses Gastrointestinal: Soft and benign, No tenderness, No rebound, No guarding Neurological: Abnormal speech - Studies Microbiology Data (last 24 hrs): 03/20/20 12:12 Sputum Sputum Gram Stain - Final Assessment And Plan - Current Problems (Diagnosis) (1) Dysphagia causing pulmonary aspiration with swallowing Current Visit: Yes Status: Acute (2) CVA, old, dysphagia Current Visit: Yes Status: Acute - Plan REC: 1) hold ASA/Plavix for EGD with PEG soon 2) continue DHT TFs 3) hold Lovenox/Heparin or Eliquis for appropriate time before EGD with PEG 4) continue antibiotics
--- NOTE | 2020-03-23 19:45 | P.PN ---
Subjective Date of Service: 03/23/20 Chief Complaint: Dysphagia, s/p left MCA stroke, aspiration pneumonia Subjective: No new changes (Tolerating TFs) Physical Examination - Vital Signs Temperature: 99 F Blood Pressure: 117/67 Pulse: 90 Respirations: 16 Pulse Ox (%): 93 - Studies Microbiology Data (last 24 hrs): 03/20/20 12:12 Sputum Sputum Gram Stain - Final Assessment And Plan - Current Problems (Diagnosis) (1) Dysphagia causing pulmonary aspiration with swallowing Current Visit: Yes Status: Acute (2) CVA, old, dysphagia Current Visit: Yes Status: Acute - Plan REC: 1) hold ASA/Plavix for EGD with PEG soon 2) continue DHT TFs 3) hold Lovenox/Heparin or Eliquis for appropriate time before EGD with PEG 4) continue antibiotics
[2020-03-23] MEDS: ATORVASTATIN 40 MG TAB PO SCH (21:14)
[2020-03-23] MEDS: QUETIAPINE 25 MG TAB PO SCH (21:15)
--- NOTE | 2020-03-24 02:27 | FAST ---
QUALITY INDICATORS FORM SHIFT START DATE/TIME: 03/23/2020 19:00 (CDT) SHIFT END DATE/TIME: 03/24/2020 07:00 (CDT) NAME TRICE SIM DATE OF : 1955 DATE OF ADMISSION: 03/18/2020 20:01 (CDT) PHONE: AGE: 65 N# [id number] GENDER: Male ENCOUNTER PHYSICIAN: Dr. Adiel Marroquin M.D. ADMISSION DIAGNOSIS: - Stroke 01 - Right Body (Left Brain) (01.2) acute left medullary lucunar infarct . EATING: Not assessed/no information CODE: - ORAL HYGIENE: Not assessed/no information CODE: - TOILETING HYGIENE: TOILETING HYGIENE - STEP 1: Does the patient complete the activity by him/herself with no assistance (physical, verbal/nonverbal cueing, setup/clean-up)? No. TOILETING HYGIENE - STEP 2: Does the patient need only setup/clean-up assistance from one helper? No. TOILETING HYGIENE - STEP 3: Does the patient need only verbal/nonverbal cueing or touching/steadying/contact guard assistance fro m one helper? Yes. 1. [id number] ADMISSION PERFORMANCE: Supervision or touching assistance CODE: 04 BATHING: Not assessed/no information CODE: - DRESSING - UPPER BODY: Not assessed/no information CODE: - DRESSING - LOWER BODY: Not assessed/no information CODE: - PUTTING ON/TAKING OFF FOOTWEAR: Not assessed/no information CODE: - ROLL LEFT AND RIGHT: ROLL LEFT AND RIGHT - STEP 1: Does the patient complete the activity by him/herself with no assistance (physical, verbal/nonverbal cueing, setup/clean-up)? No. ROLL LEFT AND RIGHT - STEP 2: Does the patient need only setup/clean-up assistance from one helper? No. ROLL LEFT AND RIGHT - STEP 3: Does the patient need only verbal/nonverbal cueing or touching/steadying/contact guard assistance fro m one helper? Yes. 1. [id number] ADMISSION PERFORMANCE: Supervision or touching assistance CODE: 04 SIT TO LYING: SIT TO LYING - STEP 1: Does the patient complete the activity by him/herself with no assistance (physical, verbal/nonverbal cueing, setup/clean-up)? No. SIT TO LYING - STEP 2: Does the patient need only setup/clean-up assistance from one helper? No. SIT TO LYING - STEP 3: Does the patient need only verbal/nonverbal cueing or touching/steadying/contact guard assistance fro m one helper? Yes. 1. [id number] ADMISSION PERFORMANCE: Supervision or touching assistance CODE: 04 LYING TO SITTING: LYING TO SITTING ON SIDE OF BED - STEP 1: Does the patient complete the activity by him/herself with no assistance (physical, verbal/nonverbal cueing, setup/clean-up)? No. LYING TO SITTING ON SIDE OF BED - STEP 2: Does the patient need only setup/clean-up assistance from one helper? No. LYING TO SITTING ON SIDE OF BED - STEP 3: Does the patient need only verbal/nonverbal cueing or touching/steadying/contact guard assistance fro m one helper? Yes. 1. [id number] ADMISSION PERFORMANCE: Supervision or touching assistance CODE: 04 SIT TO STAND: Not assessed/no information CODE: - TRANSFERS: BED, CHAIR: Not assessed/no information CODE: - TRANSFER TOILET: Not assessed/no information CODE: - TRANSFERS: CAR: Not assessed/no information CODE: - WALK 10 FEET: Not assessed/no information CODE: - 1 STEP (CURB): Not assessed/no information CODE: - PICKING UP OBJECT: Not assessed/no information CODE: - DOES THE PATIENT USE A WHEELCHAIR/SCOOTER? CODE: EXPR WHEEL 50 FEET WITH TWO TURNS: Not assessed/no information CODE: - INDICATE THE TYPE OF WHEELCHAIR/SCOOTER USED: CODE: EXPR WHEEL 150 FEET: Not assessed/no information CODE: - INDICATE THE TYPE OF WHEELCHAIR/SCOOTER USED: CODE: EXPR BLADDER AND BOWEL: H350. BLADDER CONTINENCE (3-DAY ASSESSMENT PERIOD): Always continent (no documented incontinence) CODE: 0 H400. BOWEL CONTINENCE (3-DAY ASSESSMENT PERIOD): Always continent CODE: 0
[2020-03-24] MEDS: TRAMADOL HCL 50 MG TAB PO PRN ×2 (04:20→20:18)
[2020-03-24] MEDS: ARFORMOTEROL TARTRATE 15 MCG/2 ML VIAL.NEB IH SCH ×2 (07:50→20:00)
[2020-03-24] MEDS: METOPROLOL TAR 50 MG TAB PO SCH ×2 (08:00→20:18)
[2020-03-24] MEDS: ENOXAPARIN 40 MG/0.4 ML SQ SCH ×3 (08:00→20:17)
[2020-03-24] MEDS: MAGNESIUM OXIDE 400 MG TAB PO SCH ×2 (08:00→20:18)
[2020-03-24] MEDS: predniSONE 10 MG TAB PO SCH (08:00)
[2020-03-24] MEDS: NICOTINE 21 MG/PAT TD SCH (10:23)
[2020-03-24] MEDS: IPRATROPIUM 200 PUFF/12.9 GM INH IH SCH ×4 (10:23→20:19)
[2020-03-24] MEDS: LIDOCAINE 4% PATCH TOP SCH (10:26)
[2020-03-24] MEDS ORDERED: propofoL 200 MG/20 ML VIAL IV ONE ×2 (12:56→12:58)
[2020-03-24] MEDS ORDERED: LIDOCAINE 1% MPF 5 ML VIAL ONE (12:58)
[2020-03-24] MEDS ORDERED: NA CHLORIDE 0.9% 1,000 ML ONE (13:00)
[2020-03-24] MEDS: Levofloxacin500mg IV 500 MG/100 ML BAG IV SCH (13:00)
[2020-03-24] MEDS ORDERED: Levofloxacin500mg IV 500 MG/100 ML BAG IV ONE (13:29)
[2020-03-24] MEDS ORDERED: Phenylephrine HCl 10 MG/ML 1 ML VIAL ONE (13:37)
--- NOTE | 2020-03-24 13:50 | ENDO RPT ---
[address], [address] EGD WITH PEG PROCEDURE REPORT EXAM DATE: 03/24/2020 PATIENT NAME: Gabriel Darnell MR #: [id number] BIRTHDATE: 1955 ATTENDING: Saman Alberto Dr STATUS: inpatient - 7 HAZARDOUS WASTE MANAGEMENT SPECIALIST: Kim Gimenez RN, Charisma Phelps RN, and Susan Moore CST INDICATIONS: The patient is a 65 yr old Male here for an EGD with PEG due to dysphagia PROCEDURE PERFORMED: EGD with biopsy EGD with PEG placement MEDICATIONS: Per Anesthesia. TOPICAL ANESTHETIC: none CONSENT: The patient understands the risks and benefits of the procedure and understands that these risks include, but are not limited to: sedation, allergic reaction, infection, perforation and/or bleeding. Alternative means of evaluation and treatment include, among others: physical exam, x-rays, and/or surgical intervention. The patient elects to proceed with this endoscopic procedure. DESCRIPTION OF PROCEDURE: During intra-op preparation period all mechanical medical equipment was checked for proper function. Hand hygiene and appropriate measures for infection prevention was taken. After the risks, benefits and alternatives of the procedure were thoroughly explained, Informed consent was verified, confirmed and timeout was successfully executed by the treatment team. The patient was anesthetized with topical anesthesia and the EG-[id number] ([id number]) endoscope was introduced through the mouth and advanced to the second portion of the duodenum. The instrument was slowly withdrawn as the mucosa was fully examined. Moderate gastritis was found in the body and the antrum of the stomach. Multiple biopsies were obtained and sent to pathology. Duodenitis was found in the bulb of the duodenum. The stomach was then inflated with air, and by a combination of transillumination and manual palpation, the site for the gastrostomy tube placement was selected and marked on the anterior abdominal wall. The skin of the anterior abdomen was surgically prepped and draped with sterile towels. Utilizing strict sterile technique, the selected site was then anesthetized with 1% xylocaine by injection into the skin and subcutaneous tissue. A 1 cm incision was made through the skin and subcutaneous tissue, and the needle/cannula assembly was then passed through the abdominal wall and through the anterior wall of the stomach, maintaining visualization with the endoscope. A snare device previously placed through the instrument channel was then opened and placed around the cannula, the needle was removed, and the insertion wire was passed through the cannula and into the stomach lumen. The snare was then loosened from the cannula, and repositioned to snare the insertion wire. The snare was then pulled up to the endoscope distal tip, and the scope was then withdrawn bringing with it the snare and insertion wire. The insertion wire was then released from the snare, and the PEG PUSH gastrostomy tube placed over the guidewire. Using the push technique, the tube was then pushed into place over the insertion wire at the abdominal wall end. The tube insertion site was then cleansed once again, and the external bolster was placed over the tube to secure it to the abdominal wall. A sterile dressing was then applied, and the procedure terminated. Retroflexed views revealed no abnormalities. The gastroscope was then slowly withdrawn and removed. ADVERSE EVENT: There were no complications. IMPRESSIONS: 1. 20 Fr PEG tube endoscopic placement 2. Moderate gastritis in the body and the antrum of the stomach, s/p biopsies 3. Duodenitis in the bulb of the duodenum RECOMMENDATIONS: 1. await biopsy results 2. acid suppression therapy 3. begin PEG use in 3 hours REPEAT EXAM: Saman Alberto Dr eSigned: Saman Alberto Dr 03/24/2020 1:50 PM cc: Adiel Marroquin CPT CODES: ICD9 CODES: PATIENT NAME: Gabriel Darnell MR#: [id number]
[2020-03-24] MEDS ORDERED: MEPERIDINE HCL 25 MG/ML SYR IV ONE (14:28)
[2020-03-24] MEDS ORDERED: ONDANSETRON 4 MG/2 ML VIAL IV ONE (15:00)
[2020-03-24] MEDS: HYDROCODONE/APAP 5/325 MG TAB PO PRN ×2 (18:16→23:16)
--- NOTE | 2020-03-24 18:33 | R.PN ---
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 Pt denied any depression. Mr. Sim has a dense right hemiparesis and severe dysphasia after his left MCA stroke. He refused to do therapy with multiple therapists on several occasions. He is voicing and posting thoughts of lamar icidal ideation. However, he agreed to have a Dobhoff placed and have a PEG tube now scheduled for . He did supine exercises in bed today. WBC 8.0, Ca is mildly low at 8.1., UA is negative. COVID-19 is negative. Sputum culture gres strep pneumoniae sensitive to levofloxacin 500 mg daily, on day 5 of 10. He self propelled a wheelchair 150' with minimum assistance. VITAL SIGNS Temperature: 98.4 F SBP/DBP: 111/76 Pulse: 103 Resp: 16 S/P PEG tube placement by Dr. Alberto. MEDICATION ALLERGIES: No Known Drug Allergies (NKDA) ENVIRONMENTAL ALLERGIES: None Known - Substance Allergies None Known - Other Allergies None Known NURSING: - Shower allowing shower - Bladder care per protocol - Skin care per protocol PRECAUTIONS: - Weight Bearing Precaution WBAT right LE ACTIVITIES OOB only with supervision THERAPIES: - Occupational Therapy Cognitive Retraining. Visual Perceptual Training. - Dietary and Nutrition Adequate Nutrition. Nutritional Education. Nutritional Supplements. - Speech Therapy Cognitive Training. Expressive Language Skills. Memory Strategies. Receptive Language Skills. Speech Intelligibility Training. PHYSICAL EXAM - Gen Alert and awake Lying in bed No apparent distress Oriented to: person, time, and place - Skin No skin breakdown. Normacephalic - Eyes No abnormalities - ENMT No abnormalities - Neck No abnormalities No cervical adenopathy - CVS IRIR - Chest Mildly decreased breath sounds bilaterally. - Resp No crackles - Abd Soft - GI Soft Deferred - No abnormalities - Ext No significant edema - MSK 0-1+/5 weakness in right upper and lower extremity. - Neuro 0-1+/5 weakness in right upper and lower extremity. - Psych Mild anxiety. ASSESSMENT: Pt. is a 65 yo Right-handed white male.On 03/12/2020 Pt. presented to [facility] [place] with sudden onset of right-side weakness.On 03/12/2020 he was admitted to [facility] with diagnosis acute left medu llary lucunar infarct .His impairment category is Stroke 01 - Right Body (Left Brain) (01.2).Pre-m orbidly, Pt. was independent/mod-I in Transfers Control and Locomotion; and he had good Balance, Soci al Cognition, Communication, and Sphincter Control.Currently, he has deficits of Transfers Control, B alance, Locomotion, Self-Care, Safety Awareness, Social Cognition, and Communication.Pt. is now refer red to [facility] for acute in-patient rehabilitation in order to maximize pat yoan's functional independence in activities of daily living, strength, ROM, and mobility.- Rehab Goa l Patient has realistic goal of being discharged at assistance level 6-Narda to reside at Home with Spo use. MDM/PLAN: - Physical Therapy Inability to transfer - to improve, our physical therapists will perform initial evaluation of pt's status upon admission and devise an individualized program for Bed mobility Need for home safety evaluation - to improve, our physical therapists will perform initial evaluatio n of pt's status upon admission and devise an individualized program for Home Evaluation Need in caregiver upon discharge - to improve, our physical therapists will perform initial evaluati on of pt's status upon admission and devise an individualized program for Caregiver Training Edema - to improve, our physical therapists will perform initial evaluation of pt's status upon admi ssion and devise an individualized program for Elevation Training, and Lymphedema Therapy New precaution - to improve, our physical therapists will perform initial evaluation of pt's status upon admission and devise an individualized program for Patient precaution education Poor balance - to improve, our physical therapists will perform initial evaluation of pt's status up on admission and devise an individualized program for Balance Training Achieving independence - to improve, our physical therapists will perform initial evaluation of pt's status upon admission and devise an individualized program for Community Reintegration Activities - Occupational Therapy ADL deficits - to improve, our occupation therapists will perform initial evaluation of pt's status upon admission and devise an individualized program for Bathing, Bed mobility, Community Reintegratio n, Cooking, Dressing, Eating, Fine Motor Skills, Grooming, Homemaking, Kitchen Mobility, Laundry, Pat ient Education, Safety Awareness, Splinting - Positioning, Transfers(Toilet, Tub, Shower), and Wheel Chair Management Cognitive deficits - to improve, our occupation therapists will perform initial evaluation of pt's s tatus upon admission and devise an individualized program for Cognition - orientation Need for animal caretaker supervisor - to improve, our occupation therapists will perform initial evaluation of pt's status upon admission and devise an individualized program for Caregiver Training - Other See attached MAR (Medication Administration Record) - Diet Type Continue Regular - Diet - Liquid Texture Continue Regular - Tube Feed Continue N/A - Bladder care per protocol - Weight Bearing Precaution WBAT right LE - Skin care per protocol - Diet - Solid Texture Continue Regular - Shower allowing shower for Dementia, TBI, Stroke, or others FUNCTIONAL STATUS: UPDATED AT WEEKLY TEAM CONFERENCE - Walking Same score based on distance walked: 1(<=50ft) FUNCTIONAL STATUS: - Self-Care A. Eating maxA B. Grooming modA C. Bathing maxA D. Dressing - Upper modA E. Dressing - Lower maxA F. Toileting modA - Sphincter Control G. Bladder control modA H. Bowel control modA - Transfers Control I. Bed/Chair/Wheelchair maxA J. Toilet modA K. Tub/Shower maxA - Locomotion L. Walk/Wheelchair (W) maxA M. Stairs ADNO - Communication N. Comprehension (B) sup O. Expression (B) sup - Social Cognition P. Social Interaction Norman Q. Problem Solving modA R. Memory sup - Endurance Poor - Balance Poor - Safety Awareness Poor QI SCORES: - Self-Care A. Eating 04-Supervision or touching assistance B. Oral hygiene 04-Supervision or touching assistance C. Toileting hygiene 02-Substantial/maximal assistance E. Shower/bathe self 02-Substantial/maximal assistance F. Upper body dressing 03-Partial/moderate assistance G. Lower body dressing 02-Substantial/maximal assistance H. Putting on/taking off footwear - Mobility A. Roll left and right 04-Supervision or touching assistance B. Sit to lying 04-Supervision or touching assistance C. Lying to sitting on side of bed 04-Supervision or touching assistance D. Sit to stand 03-Partial/moderate assistance E. Chair/[id number]-bs-ttwzx transfer 04-Supervision or touching assistance F. Toilet transfer 04-Supervision or touching assistance G. Car transfer 88-Not attempted due to medical condition or safety concerns I. Walk 10 feet 88-Not attempted due to medical condition or safety concerns J. Walk 50 feet with two turns 88-Not attempted due to medical condition or safety concerns K. Walk 150 feet 88-Not attempted due to medical condition or safety concerns L. Walking 10 feet on uneven surfaces 88-Not attempted due to medical condition or safety concerns M. 1 step (curb) 88-Not attempted due to medical condition or safety concerns N. 4 steps 88-Not attempted due to medical condition or safety concerns O. 12 steps 88-Not attempted due to medical condition or safety concerns P. Picking up object 88-Not attempted due to medical condition or safety concerns - Bladder and Bowel Bladder continence Bowel continence - Endurance Good - Balance Good - Safety Awareness Good CURRENT FUNC. DEFICITS: Self-Care and Mobility SIGNATURE PANEL: (CDT)
[2020-03-24] MEDS: ATORVASTATIN 40 MG TAB PO SCH (20:18)
[2020-03-24] MEDS: QUETIAPINE 25 MG TAB PO SCH (20:18)
[2020-03-25] MEDS: TRAZODONE 50 MG TABLET PO PRN (02:06)
[2020-03-25] MEDS: TRAMADOL HCL 50 MG TAB PO PRN ×2 (02:07→08:07)
[2020-03-25] MEDS: HYDROCODONE/APAP 5/325 MG TAB PO PRN ×4 (04:16→21:29)
[2020-03-25 05:55] VITALS: BMI 13.4
[2020-03-25] MEDS: ARFORMOTEROL TARTRATE 15 MCG/2 ML VIAL.NEB IH SCH ×2 (08:00→20:50)
[2020-03-25] MEDS: ENOXAPARIN 40 MG/0.4 ML SQ SCH (08:00)
[2020-03-25] MEDS: IPRATROPIUM 200 PUFF/12.9 GM INH IH SCH ×4 (08:06→20:00)
[2020-03-25] MEDS: METOPROLOL TAR 50 MG TAB PO SCH ×2 (08:08→21:33)
[2020-03-25] MEDS: predniSONE 10 MG TAB PO SCH (08:08)
[2020-03-25] MEDS: MAGNESIUM OXIDE 400 MG TAB PO SCH ×2 (08:09→20:00)
[2020-03-25] MEDS: NICOTINE 21 MG/PAT TD SCH (09:42)
[2020-03-25] MEDS: LIDOCAINE 4% PATCH TOP SCH (09:44)
--- NOTE | 2020-03-25 12:47 | P.PN ---
Subjective Date of Service: 03/25/20 Chief Complaint: Dysphagia, s/p left MCA stroke, aspiration pneumonia Subjective: Improving (Tolerating TFs Jevity 1.5 at 50 cc/hour. + stool since EGD yesterday. No labs done today.) Review of Systems 10-point ROS is otherwise unremarkable General: Weakness, Malaise Physical Examination - Vital Signs Temperature: 97.2 F Blood Pressure: 119/78 Pulse: 80 Respirations: 16 Pulse Ox (%): 93 - Studies Microbiology Data (last 24 hrs): 03/20/20 12:12 Sputum Sputum Gram Stain - Final 03/20/20 12:12 Sputum Culture & Sensitivity - Final Strep Pneumoniae Assessment And Plan - Current Problems (Diagnosis) (1) Dysphagia causing pulmonary aspiration with swallowing Current Visit: Yes Status: Acute (2) CVA, old, dysphagia Current Visit: Yes Status: Acute - Plan REC: 1) hold ASA/Plavix 2) continue TFs via new PEG 3) continue Lovenox 4) continue antibiotics
[2020-03-25 13:46] LABS: Absolute Lymphocytes (CBC) 0.7 K/uL (0.7-4.9); Basophils % 0.4 % (0-1.3); Lymphocytes % 7.4 % (15.3-44.8); MPV 6.5 fL (7.6-11.3); RBC Red Blood Cell Count 4.51 M/uL (4.33-5.43)
[2020-03-25 13:57] LABS: BUN Blood Urea Nitrogen 11 mg/dL (7-18); Bicarbonate 31 mmol/L (21-32); Glucose Level 132 mg/dL (74-106); Phosphorus 2.9 mg/dL (2.5-4.9); Potassium 4.6 mmol/L (3.5-5.1); Sodium Level 136 mmol/L (136-145)
[2020-03-25] MEDS: Levofloxacin500mg IV 500 MG/100 ML BAG IV SCH (14:23)
[2020-03-25 14:43] LABS: Urine White Blood Cell Casts OK
[2020-03-25 14:44] LABS: Blood Morphology Comment NOT SEEN (NOT SEEN); Platelet Estimate ADEQ
[2020-03-25] MEDS: DULOXETINE 20 MG CAP PO SCH (14:57)
[2020-03-25] MEDS: ASPIRIN 81 MG CHEWABLE TABLET PO SCH (14:58)
[2020-03-25] MEDS: JEVITY 1.5 CAL LIQUID 1,000 ML BOT RTH SCH (17:27)
--- NOTE | 2020-03-25 19:41 | R.PN ---
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 Pt denied any depression. Mr. Sim has a dense right hemiparesis and severe dysphasia after his left MCA stroke. He refused to do therapy with multiple therapists on several occasions. WBC 8.0, Ca is mildly low at 8.1., UA is negative. COVID-19 is negative. Sputum culture gres strep pneumoniae sensitive to levofloxacin 500 mg daily, on day 5 of 10. He refused therapy today, VITAL SIGNS Temperature: 97.2 F SBP/DBP: 119/78 Pulse: 80 Resp: 16 S/P PEG tube placement by Dr. Alberto. MEDICATION ALLERGIES: No Known Drug Allergies (NKDA) ENVIRONMENTAL ALLERGIES: None Known - Substance Allergies None Known - Other Allergies None Known NURSING: - Shower allowing shower - Bladder care per protocol - Skin care per protocol PRECAUTIONS: - Weight Bearing Precaution WBAT right LE ACTIVITIES OOB only with supervision THERAPIES: - Occupational Therapy Cognitive Retraining. Visual Perceptual Training. - Dietary and Nutrition Adequate Nutrition. Nutritional Education. Nutritional Supplements. - Speech Therapy Cognitive Training. Expressive Language Skills. Memory Strategies. Receptive Language Skills. Speech Intelligibility Training. PHYSICAL EXAM - Gen Alert and awake Lying in bed No apparent distress Oriented to: person, time, and place - Skin No skin breakdown. Normacephalic - Eyes No abnormalities - ENMT No abnormalities - Neck No abnormalities No cervical adenopathy - CVS IRIR - Chest Mildly decreased breath sounds bilaterally. - Resp No crackles - Abd Soft - GI Soft Deferred - No abnormalities - Ext No significant edema - MSK 0-1+/5 weakness in right upper and lower extremity. - Neuro 0-1+/5 weakness in right upper and lower extremity. - Psych Mild anxiety. ASSESSMENT: Pt. is a 65 yo Right-handed white male.On 03/12/2020 Pt. presented to [facility] with sudden onset of right-side weakness.On 03/12/2020 he was admitted to [facility] with diagnosis acute left medu llary lucunar infarct .His impairment category is Stroke 01 - Right Body (Left Brain) (01.2).Pre-m orbidly, Pt. was independent/mod-I in Transfers Control and Locomotion; and he had good Balance, Soci al Cognition, Communication, and Sphincter Control.Currently, he has deficits of Transfers Control, B alance, Locomotion, Self-Care, Safety Awareness, Social Cognition, and Communication.Pt. is now refer red to [facility] for acute in-patient rehabilitation in order to maximize pat ient's functional independence in activities of daily living, strength, ROM, and mobility.- Rehab Goa l Patient has realistic goal of being discharged at assistance level 6-Narda to reside at Home with Spo use. MDM/PLAN: - Physical Therapy Inability to transfer - to improve, our physical therapists will perform initial evaluation of pt's status upon admission and devise an individualized program for Bed mobility Need for home safety evaluation - to improve, our physical therapists will perform initial evaluatio n of pt's status upon admission and devise an individualized program for Home Evaluation Need in caregiver upon discharge - to improve, our physical therapists will perform initial evaluati on of pt's status upon admission and devise an individualized program for Caregiver Training Edema - to improve, our physical therapists will perform initial evaluation of pt's status upon admi ssion and devise an individualized program for Elevation Training, and Lymphedema Therapy New precaution - to improve, our physical therapists will perform initial evaluation of pt's status upon admission and devise an individualized program for Patient precaution education Poor balance - to improve, our physical therapists will perform initial evaluation of pt's status up on admission and devise an individualized program for Balance Training Achieving independence - to improve, our physical therapists will perform initial evaluation of pt's status upon admission and devise an individualized program for Community Reintegration Activities - Occupational Therapy ADL deficits - to improve, our occupation therapists will perform initial evaluation of pt's status upon admission and devise an individualized program for Bathing, Bed mobility, Community Reintegratio n, Cooking, Dressing, Eating, Fine Motor Skills, Grooming, Homemaking, Kitchen Mobility, Laundry, Pat ient Education, Safety Awareness, Splinting - Positioning, Transfers(Toilet, Tub, Shower), and Wheel Chair Management Cognitive deficits - to improve, our occupation therapists will perform initial evaluation of pt's s tatus upon admission and devise an individualized program for Cognition - orientation Need for health care analyst - to improve, our occupation therapists will perform initial evaluation of pt's status upon admission and devise an individualized program for Caregiver Training - Other See attached MAR (Medication Administration Record) - Diet Type Continue Regular - Diet - Liquid Texture Continue Regular - Tube Feed Continue N/A - Bladder care per protocol - Weight Bearing Precaution WBAT right LE - Skin care per protocol - Diet - Solid Texture Continue Regular - Shower allowing shower for Dementia, TBI, Stroke, or others FUNCTIONAL STATUS: UPDATED AT WEEKLY TEAM CONFERENCE - Walking Same score based on distance walked: 1(<=50ft) FUNCTIONAL STATUS: - Self-Care A. Eating maxA B. Grooming modA C. Bathing maxA D. Dressing - Upper modA E. Dressing - Lower maxA F. Toileting modA - Sphincter Control G. Bladder control modA H. Bowel control modA - Transfers Control I. Bed/Chair/Wheelchair maxA J. Toilet modA K. Tub/Shower maxA - Locomotion L. Walk/Wheelchair (W) maxA M. Stairs ADNO - Communication N. Comprehension (B) sup O. Expression (B) sup - Social Cognition P. Social Interaction Norman Q. Problem Solving modA R. Memory sup - Endurance Poor - Balance Poor - Safety Awareness Poor QI SCORES: - Self-Care A. Eating 04-Supervision or touching assistance B. Oral hygiene 04-Supervision or touching assistance C. Toileting hygiene 02-Substantial/maximal assistance E. Shower/bathe self 02-Substantial/maximal assistance F. Upper body dressing 03-Partial/moderate assistance G. Lower body dressing 02-Substantial/maximal assistance H. Putting on/taking off footwear - Mobility A. Roll left and right 04-Supervision or touching assistance B. Sit to lying 04-Supervision or touching assistance C. Lying to sitting on side of bed 04-Supervision or touching assistance D. Sit to stand 03-Partial/moderate assistance E. Chair/gqe-co-lmfko transfer 04-Supervision or touching assistance F. Toilet transfer 04-Supervision or touching assistance G. Car transfer 88-Not attempted due to medical condition or safety concerns I. Walk 10 feet 88-Not attempted due to medical condition or safety concerns J. Walk 50 feet with two turns 88-Not attempted due to medical condition or safety concerns K. Walk 150 feet 88-Not attempted due to medical condition or safety concerns L. Walking 10 feet on uneven surfaces 88-Not attempted due to medical condition or safety concerns M. 1 step (curb) 88-Not attempted due to medical condition or safety concerns N. 4 steps 88-Not attempted due to medical condition or safety concerns O. 12 steps 88-Not attempted due to medical condition or safety concerns P. Picking up object 88-Not attempted due to medical condition or safety concerns - Bladder and Bowel Bladder continence Bowel continence - Endurance Good - Balance Good - Safety Awareness Good [facility] DEFICITS: Self-Care and Mobility SIGNATURE PANEL: (CDT)
[2020-03-25] MEDS: ATORVASTATIN 40 MG TAB PO SCH (21:31)
[2020-03-25] MEDS: APIXABAN 2.5 MG TABLET PO SCH (21:32)
[2020-03-25] MEDS: QUETIAPINE 25 MG TAB PO SCH (21:32)
[2020-03-25] MEDS: LORazepam 2 MG/ML VIAL IV PRN (22:48)
[2020-03-26] MEDS: HYDROCODONE/APAP 5/325 MG TAB PO PRN ×3 (04:48→19:41)
[2020-03-26] MEDS: LIDOCAINE 4% PATCH TOP SCH (06:39)
[2020-03-26] MEDS: IPRATROPIUM 200 PUFF/12.9 GM INH IH SCH ×5 (06:41→19:40)
[2020-03-26 06:42] LABS: Basophils % 0.6 % (0-1.3); Hematocrit 41.5 % (39.6-49.0); Lymphocytes % 23.1 % (15.3-44.8); MPV 6.6 fL (7.6-11.3); RBC Red Blood Cell Count 4.17 M/uL (4.33-5.43)
[2020-03-26 06:45] LABS: BUN Blood Urea Nitrogen 15 mg/dL (7-18); Bicarbonate 32 mmol/L (21-32); Glucose Level 109 mg/dL (74-106); Phosphorus 3.3 mg/dL (2.5-4.9); Potassium 3.8 mmol/L (3.5-5.1); Sodium Level 137 mmol/L (136-145)
[2020-03-26 06:48] LABS: Albumin 2.6 g/dL (3.4-5.0); Prealbumin 13.7 mg/dL (20-40)
[2020-03-26] MEDS: ARFORMOTEROL TARTRATE 15 MCG/2 ML VIAL.NEB IH SCH ×2 (07:55→19:30)
[2020-03-26] MEDS ORDERED: DULOXETINE 20 MG CAP PO SCH (08:00)
[2020-03-26] MEDS ORDERED: ASPIRIN 81 MG CHEWABLE TABLET PO SCH (08:00)
[2020-03-26] MEDS: NICOTINE 21 MG/PAT TD SCH (09:12)
[2020-03-26] MEDS: TRAMADOL HCL 50 MG TAB PO PRN ×2 (09:13→22:28)
[2020-03-26] MEDS: predniSONE 5 MG TAB PO SCH (09:14)
[2020-03-26] MEDS: DULOXETINE 20 MG CAP PO SCH (09:14)
[2020-03-26] MEDS: ASPIRIN 81 MG CHEWABLE TABLET PO SCH (09:15)
[2020-03-26] MEDS: METOPROLOL TAR 50 MG TAB PO SCH ×2 (09:15→19:41)
[2020-03-26] MEDS: APIXABAN 2.5 MG TABLET PO SCH ×2 (09:15→19:41)
[2020-03-26] MEDS: MAGNESIUM OXIDE 400 MG TAB PO SCH ×2 (09:16→19:42)
[2020-03-26] MEDS: Levofloxacin500mg IV 500 MG/100 ML BAG IV SCH (12:44)
[2020-03-26] MEDS: JEVITY 1.5 CAL LIQUID 1,000 ML BOT RTH SCH (12:45)
[2020-03-26] MEDS ORDERED: LOPERAMIDE HCL 2 MG CAPSULE PO PRN (13:34)
--- NOTE | 2020-03-26 14:12 | RAD REPORT ---
EXAM DESCRIPTION: RAD - Barium Swallow Modified - 03/26/2020 1:59 pm CLINICAL HISTORY: To evaluate Dysphagia, aspiration pneumonia, history of CVA COMPARISON: Barium Swallow Modified dated 03/20/2020 TECHNIQUE: The patient was given liquid, semi-solid and solid forms of barium. Lateral view fluorosc opic imaging was performed in conjunction with speech pathology service. FINDINGS: LARYNGEAL PENTRATION: NOT CLEARED WITH NECTAR ASPIRATION: COUGH , NO COUGH WITH THIN LIQUIDS PHARYNGEAL RESIDUE: VALLECULAR , PYRIFORM SEVERE WITH HONEY THICK, PUREE, MODERATE WITH DRY SOLIDS Total fluoroscopy time: 7 minutes and 16 seconds
[2020-03-26] MEDS: QUETIAPINE 25 MG TAB PO SCH (19:42)
[2020-03-26] MEDS: TRAZODONE 50 MG TABLET PO PRN (19:42)
[2020-03-26] MEDS: ATORVASTATIN 40 MG TAB PO SCH (19:42)
[2020-03-26] MEDS: LORazepam 2 MG/ML VIAL IV PRN (22:02)
[2020-03-27] MEDS: HYDROCODONE/APAP 5/325 MG TAB PO PRN (04:29)
[2020-03-27] MEDS: ARFORMOTEROL TARTRATE 15 MCG/2 ML VIAL.NEB IH SCH (07:43)
[2020-03-27 07:47] VITALS: BP 107/66; TEMP 97.7
[2020-03-27] MEDS: APIXABAN 2.5 MG TABLET PO SCH (09:01)
[2020-03-27] MEDS: NICOTINE 21 MG/PAT TD SCH (09:01)
[2020-03-27] MEDS: METOPROLOL TAR 50 MG TAB PO SCH (09:02)
[2020-03-27] MEDS: DULOXETINE 20 MG CAP PO SCH (09:03)
[2020-03-27] MEDS: LIDOCAINE 4% PATCH TOP SCH (09:03)
[2020-03-27] MEDS: MAGNESIUM OXIDE 400 MG TAB PO SCH (09:03)
[2020-03-27] MEDS: ASPIRIN 81 MG CHEWABLE TABLET PO SCH (09:03)
[2020-03-27] MEDS: predniSONE 5 MG TAB PO SCH (09:04)
[2020-03-27] MEDS: IPRATROPIUM 200 PUFF/12.9 GM INH IH SCH ×2 (09:04→12:00)
[2020-03-27 09:27] VITALS: O2SAT 91
--- NOTE | 2020-03-27 09:57 | P.RH.PN ---
Estimated Length of Stay: 10 Expected Discharge Date: 03/27/20 Discharge Disposition Plan: Home Family Support: Yes Vital Signs: Last Vital Signs Temp 97.7 F 03/27/20 07:47 Pulse 60 03/27/20 09:02 Resp 14 03/27/20 07:47 BP 107/66 03/27/20 09:02 Pulse Ox 94 03/27/20 07:47 Laboratory: Laboratory Last Values WBC 8.7 K/uL (4.3-10.9) 03/26/20 06:13 RBC 4.17 M/uL (4.33-5.43) L 03/26/20 06:13 Hgb 14.4 g/dL (13.6-17.9) 03/26/20 06:13 Hct 41.5 % (39.6-49.0) 03/26/20 06:13 MCV 99.4 fL (80-100) 03/26/20 06:13 MCH 34.4 pg (27.0-35.0) 03/26/20 06:13 MCHC 34.6 g/dL (32.0-36.0) 03/26/20 06:13 RDW 13.4 % (12.1-15.2) 03/26/20 06:13 Plt Count 306 K/uL (152-406) 03/26/20 06:13 MPV 6.6 fL (7.6-11.3) L 03/26/20 06:13 Neutrophils % 62.3 % (41.7-73.7) 03/26/20 06:13 Lymphocytes % 23.1 % (15.3-44.8) 03/26/20 06:13 Monocytes % 12.7 % (3.3-12.3) H 03/26/20 06:13 Eosinophils % 1.3 % (0-4.4) 03/26/20 06:13 Basophils % 0.6 % (0-1.3) 03/26/20 06:13 Absolute Neutrophils 5.4 K/uL (1.8-8.0) 03/26/20 06:13 Segmented Neutrophils 74 % (40-80) 03/19/20 14:42 Band Neutrophils 2 % (0-1) H 03/19/20 14:42 Absolute Lymphocytes 2.0 K/uL (0.7-4.9) 03/26/20 06:13 Lymphocytes 11 % (15-42) L 03/19/20 14:42 Monocytes 13 % (0-10) H 03/19/20 14:42 Absolute Monocytes 1.1 K/uL (0.1-1.3) 03/26/20 06:13 Absolute Eosinophils 0.1 K/uL (0-0.5) 03/26/20 06:13 Absolute Basophils 0.1 K/uL (0-0.5) 03/26/20 06:13 Morphology Comment Not seen (NOT SEEN) 03/25/20 13:27 Sodium 137 mmol/L (136-145) 03/26/20 06:13 Potassium 3.8 mmol/L (3.5-5.1) 03/26/20 06:13 Chloride 100 mmol/L (98-107) 03/26/20 06:13 Carbon Dioxide 32 mmol/L (21-32) 03/26/20 06:13 BUN 15 mg/dL (7-18) 03/26/20 06:13 Creatinine 0.58 mg/dL (0.55-1.3) 03/26/20 06:13 Estimated GFR > 90 mL/min (=/>90) 03/26/20 06:13 Glucose 109 mg/dL (74-106) H 03/26/20 06:13 Calcium 8.6 mg/dL (8.5-10.1) 03/26/20 06:13 Phosphorus 3.3 mg/dL (2.5-4.9) 03/26/20 06:13 Magnesium 2.0 mg/dL (1.8-2.4) 03/26/20 06:13 Albumin 2.6 g/dL (3.4-5.0) L 03/26/20 06:13 Prealbumin 13.7 mg/dL (20-40) L 03/26/20 06:13 Urine Color Yellow 03/18/20 22:30 Urine Appearance Clear 03/18/20 22:30 Urine pH 7.5 (5.0-7.0) H 03/18/20 22:30 Ur Specific [place] 1.010 (1.005-1.030) 03/18/20 22:30 Glucose (UA)(Auto) Negative (NEG) 08/19/20 22:30 Urine Ketones Negative (NEG) 03/18/20 22:30 Urine Blood Negative (NEG) 03/18/20 22:30 Urine Nitrite Negative (NEG) 03/18/20 22:30 Urine Bilirubin Negative (NEG) 03/18/20 22:30 Urine Urobilinogen 1.0 mg/dL (0.2-1.0) 03/18/20 22:30 Ur Leukocyte Esterase Negative (NEG) 03/18/20 22:30 Urine RBC None seen /HPF (NONE SEEN) 03/18/20 22:30 Urine WBC None seen /HPF (<5) 03/18/20 22:30 Ur Squamous Epith Cells CERTIFIED SCRUB TECH 03/18/20 22:30 Urine Bacteria <20 /HPF (NONE SEEN) 03/18/20 22:30 Urine Culture Reflexed Not needed 03/18/20 22:30 Urine Total Protein Negative (NEG) 03/18/20 22:30 SARS-CoV-2 RNA (RT-PCR) Negative (NEGATIVE) 03/19/20 06:50 Weight: 99 lb Wound Present: No Closed Surgical Incision Present: No Negative Pressure Wound Therapy Present: No Physician Update: Blood work reviewed and are stable. He has is PEG and is refusing to do most activities. He is at minimum assistance with transfer. He walked 6' in the parallel bars with moderate assistance. He is refusing to work anymore and will be discharged home today and have home health. Functional Improvement: pt has demonstrated minimal progress as a result of frequent refusals of therapy services. pt does poses the potential to have good physical improvement; however, his behavior, lack of motivation and compliance has severely hindered his progress. Summary: Patient's care plan and alf goals have been reviewed and revised as necessary. Please see the Rehabilitation Signature page for all necessary signatures.
[2020-03-27] MEDS: Levofloxacin500mg IV 500 MG/100 ML BAG IV SCH (13:00)
[2020-03-27] MEDS: TRAMADOL HCL 50 MG TAB PO PRN (15:00)
== END 2020-03-27 15:20 | disposition home or self-care (01) | DRG 56 ==
LOC: 5TH 22:01
PROVIDERS: ADMIT Psychiatry & Neurology Neurology with Special Qualifications in Child Neurology; ATTEND Psychiatry & Neurology Neurology with Special Qualifications in Child Neurology
PROC: 0DH63UZ Insertion of Feeding Device into Stomach, Percutaneous Approach (ICD-10-PCS; 2020-03-24)
PROC: 0DB78ZX Excision of Stomach, Pylorus, Via Natural or Artificial Opening Endoscopic, Diagnostic (ICD-10-PCS; principal; 2020-03-24 12:30)
DX: I69.351 Hemiplegia and hemiparesis following cerebral infarction affecting right dominant side (principal); J69.0 Pneumonitis due to inhalation of food and vomit; I69.391 Dysphagia following cerebral infarction; R13.10 Dysphagia, unspecified; K29.70 Gastritis, unspecified, without bleeding; K29.80 Duodenitis without bleeding; I10 Essential (primary) hypertension; J44.9 Chronic obstructive pulmonary disease, unspecified; F17.200 Nicotine dependence, unspecified, uncomplicated; Z53.29 Procedure and treatment not carried out because of patient's decision for other reasons
CPT/HCPCS: 36415; 71045; 74230; 80048; 81001; 82040; 83735; 84100; 84134; 85025; 87070; 87077; 87086; 87088; 87186; 87205; 88305; 88312; 92523; 92526; 92610; 92611; 94640; 97110; 97112; 97116; 97161; 97530; 97542; J1644; J1650; J2175; J2370; J2405; J2550; J2704; J7030; J7512; J7605; U0002; U0003